=== PATIENT | female | born 1940 | race Caucasian/White ===

== ENCOUNTER 2019-01-13 16:48 | Inpatient (IN) | payer MEDICARE, OTHER ==
[~2019-01-13] VITALS: Ht 162.6 cm; Wt 103.0 kg
[~2019-01-13 16:48] MED LIST: ASPI-611 PO; CETI10CA PO; CHOL10002 PO; HYDR12.55 PO; METO-411 PO; THYR90TA PO; VALS160T2 PO
[2019-01-13] MEDS ORDERED: normal saline 1000ml 1,000 ML IV ONE (17:59)
[2019-01-13] MEDS ORDERED: normal saline 1000ML IV soln IVB ONE (18:00)
[2019-01-13 18:16] LABS: BASOPHILS # (AUTO) 0.1 X10'3 (0-0.2); BASOPHILS % (AUTO) 0.9 % (0-1); EOSINOPHILS # (AUTO) 0.7 X10'3 (0-0.9); EOSINOPHILS % (AUTO) 5.2 % (0-6); HEMATOCRIT 28.2 % (35.0-45.0); HEMOGLOBIN 9.1 g/dl (12.0-16.0); LYMPHOCYTES # (AUTO) 2.4 X10'3 (1.1-4.8); LYMPHOCYTES % (AUTO) 18.1 % (21-51); MEAN CORPUSCULAR HEMOGLOBIN 30.1 PG (27.0-31.0); MEAN CORPUSCULAR HGB CONC 32.3 g/dL (33.0-36.5); MEAN CORPUSCULAR VOLUME 93.1 FL (78-98); MEAN PLATELET VOLUME 8.8 FL (7.4-10.4); MONOCYTES # (AUTO) 1.5 X10'3 (0-0.9); MONOCYTES % (AUTO) 11.8 % (2-12); NEUTROPHILS # (AUTO) 8.4 X10'3 (1.8-7.7); PLATELET COUNT 545 X10'3 (140-440); RED BLOOD COUNT 3.03 X10'6 (4.20-5.60); RED CELL DISTRIBUTION WIDTH 14.5 % (11.5-14.5); WHITE BLOOD COUNT 13.1 X10'3 (4.5-11.0)
[2019-01-13 18:27] LABS: ALANINE AMINOTRANSFERASE 30 U/L (12-78); ALBUMIN/GLOBULIN RATIO 0.6 (1.1-1.5); ALKALINE PHOSPHATASE 100 IU/L (46-116); ANION GAP 15 (8-16); ASPARTATE AMINO TRANSFERASE 21 U/L (10-37); BILIRUBIN,TOTAL 0.6 MG/DL (0.1-1.0); BLOOD UREA NITROGEN 62 MG/DL (7-18); BUN/CREATININE RATIO 8.7 (6.6-38.0); CALCIUM 8.4 MG/DL (8.5-10.1); CHLORIDE 99 MMOL/L (99-107); CREATININE 7.09 MG/DL (0.40-0.90); GLUCOSE 109 MG/DL (70-104); POTASSIUM 4.4 MMOL/L (3.5-5.1); SODIUM 136 MMOL/L (135-145); TOTAL CARBON DIOXIDE 22.4 MMOL/L (24-32); eGFR 6 ML/MIN
[2019-01-13] MEDS ORDERED: acetaminophen 325mg tablet PO PRN (18:30)
[2019-01-13] MEDS ORDERED: bisacodyl 10mg suppository rectal RC PRN (18:30)
[2019-01-13] MEDS ORDERED: levoFLOXACIN-Levaquin 500mg/D5 100 ML IV ONE (18:45)
[2019-01-13 19:06] LABS: CLARITY,URINE SLIGHTLY CLOUDY (Clear); COLOR,URINE YELLOW (Yellow); GLUCOSE, URINE NEGATIVE (Neg); KETONES,URINE NEGATIVE (Neg); LEUKOCYTE ESTERASE ,URINE LARGE (Neg); NITRITES, URINE NEGATIVE (Neg); OCCULT BLOOD,URINE SMALL (Neg); PROTEIN,URINE 30 mg/dl (Neg); UROBILINOGEN,URINE 0.2 E.U/dL (0.2-1.0)
[2019-01-13 19:17] LABS: UA COLLECTION TYPE VOIDED
[2019-01-13 19:18] LABS: BACTERIA,URINE 4+ /HPF (Neg); RBC,URINE 0-2 /HPF (0-2); SQUAMOUS EPITHELIAL CELL,UR MODERATE /LPF (FEW); WBC,URINE TNTC /HPF (0-4)
--- NOTE | 2019-01-13 19:37 | NUR ---
I have received report from Jose ERIC and had the opportunity to ask questions and awaiting arrival of patient to the PCU unit from the ED.
[2019-01-13] MEDS: heparin, porcine 5000 units/ml vial SQ SCH (20:00)
--- NOTE | 2019-01-13 20:05 | NUR ---
Patient arrived to the PCU unit at this time into room 3013A. She is alert and oriented and able to make her needs known. She is oriented to her room and the call light system. She is on room air. Vitals are stable. She denies pain at this time. All safety precautions are in place. Will continue to monitor.
[2019-01-13 20:15] VITALS: BP 155/43
[2019-01-13] MEDS: normal saline 1000ml 1,000 ML IV SCH (20:45)
[2019-01-13 22:00] VITALS: BP 167/67
[2019-01-14] VITALS (8 sets, daily range): BP systolic 134–185; BP diastolic 53–77
[2019-01-14] MEDS: hydrALAZINE 20mg/ml inj. IV PRN ×2 (02:52→11:39)
--- NOTE | 2019-01-14 03:14 | NUR ---
Patient's blood pressure was 180/66 so July notified and ordered PRN IVP Hydralazine 10mg so this was administered and will reassess.
--- NOTE | 2019-01-14 04:12 | NUR ---
BP now down to 158/77 after PRN Hydralazine.
--- NOTE | 2019-01-14 06:27 | NUR ---
Problems reprioritized. Patient report given, questions answered & plan of care reviewed with Janice ERIC.
--- NOTE | 2019-01-14 06:36 | NUR ---
Patient in room PCU 3013. I have received report from Patricia and had the opportunity to ask questions and assume patient care.
[2019-01-14 06:43] LABS: BASOPHILS # (AUTO) 0.1 X10'3 (0-0.2); BASOPHILS % (AUTO) 1.1 % (0-1); EOSINOPHILS # (AUTO) 0.7 X10'3 (0-0.9); EOSINOPHILS % (AUTO) 6.9 % (0-6); HEMATOCRIT 25.7 % (35.0-45.0); HEMOGLOBIN 8.4 g/dl (12.0-16.0); LYMPHOCYTES # (AUTO) 1.9 X10'3 (1.1-4.8); LYMPHOCYTES % (AUTO) 17.7 % (21-51); MEAN CORPUSCULAR HEMOGLOBIN 30.3 PG (27.0-31.0); MEAN CORPUSCULAR HGB CONC 32.6 g/dL (33.0-36.5); MEAN PLATELET VOLUME 8.5 FL (7.4-10.4); MONOCYTES # (AUTO) 1.2 X10'3 (0-0.9); MONOCYTES % (AUTO) 11.5 % (2-12); NEUTROPHILS # (AUTO) 6.7 X10'3 (1.8-7.7); NEUTROPHILS % (AUTO) 62.8 % (42-75); PLATELET COUNT 449 X10'3 (140-440); RED BLOOD COUNT 2.76 X10'6 (4.20-5.60); RED CELL DISTRIBUTION WIDTH 14.4 % (11.5-14.5); WHITE BLOOD COUNT 10.6 X10'3 (4.5-11.0)
[2019-01-14 06:58] LABS: ALANINE AMINOTRANSFERASE 22 U/L (12-78); ALBUMIN 2.6 G/DL (3.4-5.0); ALBUMIN/GLOBULIN RATIO 0.6 (1.1-1.5); ALKALINE PHOSPHATASE 88 IU/L (46-116); ANION GAP 14 (8-16); ASPARTATE AMINO TRANSFERASE 19 U/L (10-37); BILIRUBIN,TOTAL 0.6 MG/DL (0.1-1.0); BLOOD UREA NITROGEN 58 MG/DL (7-18); BUN/CREATININE RATIO 8.6 (6.6-38.0); CALCIUM 8.2 MG/DL (8.5-10.1); CHLORIDE 105 MMOL/L (99-107); CHOL/HDL RATIO 4.5 (0.00-4.99); CHOLESTEROL 112 MG/DL (0-200); CREATININE 6.74 MG/DL (0.40-0.90); GLUCOSE 95 MG/DL (70-104); HDL CHOLESTEROL 25 MG/DL (35-60); LDL CHOLESTEROL 73 MG/DL (50-100); SODIUM 139 MMOL/L (135-145); TOTAL CARBON DIOXIDE 19.6 MMOL/L (24-32); TOTAL PROTEIN 7.1 G/DL (6.4-8.2); TRIGLYCERIDES 95 MG/DL (20-135); eGFR 6 ML/MIN
[2019-01-14] MEDS: aspirin 81mg tablet.DR PO SCH (07:45)
[2019-01-14] MEDS: levoFLOXACIN-Levaquin 250mg/D5 50 ML IV SCH (07:45)
[2019-01-14] MEDS: thyroid, pork 30mg tablet PO SCH (07:45)
[2019-01-14] MEDS: vitamin D (cholecalciferol) 1,000 unit tablet PO SCH (07:46)
[2019-01-14] MEDS: metoprolol succinate 25mg (24-HOUR) SR. Tablet PO SCH (07:46)
[2019-01-14] MEDS: heparin, porcine 5000 units/ml vial SQ SCH ×3 (07:46→21:43)
[2019-01-14] MEDS: normal saline 1000ml 1,000 ML IV SCH (07:46)
[2019-01-14 07:50] LABS: TOTAL CELLS COUNTED 100
[2019-01-14 07:51] LABS: PLATELET ESTIMATE INCREASED
[2019-01-14] MEDS: ondansetron/PF 4mg/2ml inj IV PRN ×2 (07:58→15:18)
--- NOTE | 2019-01-14 09:11 | NUR ---
WOUND INFECTION EDUCATION PROVIDED BY WOUND CARE 1. Patient instructed to call their primary doctor, or go the ED immediately if any of the following symptoms occur: * Increased pain in wound * Increase in drainage from the wound * Redness in the skin surrounding the wound * Warmth in the skin surrounding the wound * Bleeding from the wound * Temperature of 101 or greater 2. If any of these occur while in the hospital tell a nurse immediately. Addendum: 01/14/19 at 0911 by Lonra Shah RN Amended: Links added.
--- NOTE | 2019-01-14 11:07 | NUR ---
Renal diet consult: Pt admit acute on chronic renal failure and UTI. Pt has hx CKD III w/ labs WNL Na 136 on admit w/o Mg/Phos taken this admit. Given baseline unknown, electrolytes WNL this admit, and not end-stage renal disease not appropriate for diet ed at this time. Addendum: 01/14/19 at [address] Amended: Links added.
[2019-01-14] MEDS: acetaminophen 325mg tablet PO PRN (13:41)
[2019-01-14] MEDS: cloNIDine 0.1 mg tablet PO SCH ×2 (15:59→21:43)
--- NOTE | 2019-01-14 18:18 | NUR ---
Problems reprioritized. Patient report given, questions answered & plan of care reviewed with Alisa ERIC.
[2019-01-14] MEDS: lactobacillus rhamnosus 10,000 MMU CELLS/CAPSULE PO SCH (21:43)
--- NOTE | 2019-01-14 23:54 | NUR ---
Patient in room PCU 3013. I have received report from Janice ERIC and had the opportunity to ask questions and assume patient care. Patient is resting with her family at bedside. Will continue to monitor. Addendum: 01/14/19 at 2356 by Alisa Young RN Della ERIC
[2019-01-15 02:00] VITALS: BP 157/51
[2019-01-15 05:12] LABS: BASOPHILS # (AUTO) 0.1 X10'3 (0-0.2); EOSINOPHILS # (AUTO) 0.6 X10'3 (0-0.9); EOSINOPHILS % (AUTO) 6.8 % (0-6); HEMATOCRIT 22.6 % (35.0-45.0); HEMOGLOBIN 7.6 g/dl (12.0-16.0); LYMPHOCYTES # (AUTO) 1.8 X10'3 (1.1-4.8); LYMPHOCYTES % (AUTO) 20.4 % (21-51); MEAN CORPUSCULAR HEMOGLOBIN 30.9 PG (27.0-31.0); MEAN CORPUSCULAR HGB CONC 33.4 g/dL (33.0-36.5); MEAN CORPUSCULAR VOLUME 92.6 FL (78-98); MEAN PLATELET VOLUME 8.6 FL (7.4-10.4); MONOCYTES % (AUTO) 11.4 % (2-12); NEUTROPHILS # (AUTO) 5.3 X10'3 (1.8-7.7); NEUTROPHILS % (AUTO) 60.4 % (42-75); PLATELET COUNT 370 X10'3 (140-440); RED BLOOD COUNT 2.44 X10'6 (4.20-5.60); RED CELL DISTRIBUTION WIDTH 14.6 % (11.5-14.5); WHITE BLOOD COUNT 8.7 X10'3 (4.5-11.0)
[2019-01-15 05:27] LABS: ALANINE AMINOTRANSFERASE 21 U/L (12-78); ALBUMIN 2.4 G/DL (3.4-5.0); ALBUMIN/GLOBULIN RATIO 0.6 (1.1-1.5); ALKALINE PHOSPHATASE 75 IU/L (46-116); ANION GAP 13 (8-16); ASPARTATE AMINO TRANSFERASE 14 U/L (10-37); BILIRUBIN,TOTAL 0.5 MG/DL (0.1-1.0); BLOOD UREA NITROGEN 62 MG/DL (7-18); BUN/CREATININE RATIO 8.4 (6.6-38.0); CALCIUM 8.1 MG/DL (8.5-10.1); CHLORIDE 105 MMOL/L (99-107); CREATININE 7.37 MG/DL (0.40-0.90); GLUCOSE 96 MG/DL (70-104); POTASSIUM 4.3 MMOL/L (3.5-5.1); SODIUM 137 MMOL/L (135-145); TOTAL CARBON DIOXIDE 19.1 MMOL/L (24-32); TOTAL PROTEIN 6.6 G/DL (6.4-8.2); eGFR 5 ML/MIN
--- NOTE | 2019-01-15 06:16 | NUR ---
Problems reprioritized. Patient report given, questions answered & plan of care reviewed with Della ERIC.
--- NOTE | 2019-01-15 06:45 | NUR ---
Patient in room PCU 3013. I have received report from Alisa and had the opportunity to ask questions and assume patient care.
[2019-01-15 06:47] LABS: ANISOCYTOSIS 1+; PLATELET ESTIMATE NORMAL
[2019-01-15 06:48] LABS: POLYCHROMASIA 1+; ROULEAUX 1+
[2019-01-15 07:00] VITALS: BP 134/51
[2019-01-15] MEDS: heparin, porcine 5000 units/ml vial SQ SCH ×2 (08:00→20:00)
[2019-01-15] MEDS: aspirin 81mg tablet.DR PO SCH (08:11)
[2019-01-15] MEDS: lactobacillus rhamnosus 10,000 MMU CELLS/CAPSULE PO SCH ×2 (08:11→20:55)
[2019-01-15] MEDS: cloNIDine 0.1 mg tablet PO SCH ×3 (08:11→20:55)
[2019-01-15] MEDS: thyroid, pork 30mg tablet PO SCH (08:11)
[2019-01-15] MEDS: vitamin D (cholecalciferol) 1,000 unit tablet PO SCH (08:11)
[2019-01-15] MEDS: levoFLOXACIN-Levaquin 250mg/D5 50 ML IV SCH (08:11)
[2019-01-15] MEDS: metoprolol succinate 25mg (24-HOUR) SR. Tablet PO SCH (08:12)
[2019-01-15] MEDS ORDERED: heparin 1,000unit/ml 10ml vial 10 ML IV ONE (09:43)
[2019-01-15] MEDS ORDERED: heparin 1,000 units/ml 10ml inj IV ONE (09:45)
[2019-01-15] MEDS ORDERED: albumin (human) 25% 100ml IV 100 ML IV PRN (09:45)
[2019-01-15] MEDS ORDERED: epoetin 20,000 units/ml inj IV ONE (09:45)
[2019-01-15] MEDS ORDERED: heparin 1,000 units/ml 10ml inj HE ONE ×2 (09:50)
[2019-01-15 11:00] VITALS: BP 127/87
[2019-01-15] MEDS ORDERED: fentaNYL/PF 50MCG/1 ML 2ML syringe IV PRN (11:05)
[2019-01-15] MEDS ORDERED: midazolam 2 mg/2 ml injection IV PRN (11:05)
[2019-01-15] MEDS ORDERED: LIDOcaine 1%/PF 5ML 10 MG/ML VIAL SQ ONE (11:05)
[2019-01-15] MEDS ORDERED: LIDOcaine 1%/PF 5ML 10 MG/ML VIAL ONE (11:19)
[2019-01-15] MEDS ORDERED: heparin 1,000unit/ml 10ml vial 10 ML ONE (11:19)
[2019-01-15] MEDS ORDERED: midazolam 2 mg/2 ml injection ONE (11:20)
[2019-01-15] MEDS ORDERED: fentaNYL/PF 50MCG/1 ML 2ML syringe ONE (11:20)
--- NOTE | 2019-01-15 11:30 | NUR ---
IR to PCU floor to pickup patient for Tunneled dialysis catheter placement and informed per PCU Nurse that the procedure was canceled.
[2019-01-15 15:00] VITALS: BP 137/53
[2019-01-15 19:00] VITALS: BP 151/58
[2019-01-15 23:00] VITALS: BP 140/45
[2019-01-15] MEDS: normal saline 1000ml 1,000 ML IV SCH (23:10)
[2019-01-16] VITALS (7 sets, daily range): BP systolic 103–168; BP diastolic 52–68
[2019-01-16 05:40] LABS: BASOPHILS # (AUTO) 0.1 X10'3 (0-0.2); EOSINOPHILS # (AUTO) 0.8 X10'3 (0-0.9); EOSINOPHILS % (AUTO) 9.3 % (0-6); HEMATOCRIT 23.6 % (35.0-45.0); HEMOGLOBIN 7.8 g/dl (12.0-16.0); LYMPHOCYTES # (AUTO) 1.7 X10'3 (1.1-4.8); LYMPHOCYTES % (AUTO) 20.2 % (21-51); MEAN CORPUSCULAR HEMOGLOBIN 30.8 PG (27.0-31.0); MEAN CORPUSCULAR VOLUME 93.2 FL (78-98); MEAN PLATELET VOLUME 8.6 FL (7.4-10.4); MONOCYTES # (AUTO) 0.8 X10'3 (0-0.9); MONOCYTES % (AUTO) 9.2 % (2-12); NEUTROPHILS # (AUTO) 5.1 X10'3 (1.8-7.7); NEUTROPHILS % (AUTO) 60.3 % (42-75); PLATELET COUNT 316 X10'3 (140-440); RED BLOOD COUNT 2.53 X10'6 (4.20-5.60); RED CELL DISTRIBUTION WIDTH 14.9 % (11.5-14.5); WHITE BLOOD COUNT 8.5 X10'3 (4.5-11.0)
[2019-01-16 05:54] LABS: ALANINE AMINOTRANSFERASE 22 U/L (12-78); ALBUMIN 2.5 G/DL (3.4-5.0); ALBUMIN/GLOBULIN RATIO 0.6 (1.1-1.5); ALKALINE PHOSPHATASE 80 IU/L (46-116); ANION GAP 13 (8-16); ASPARTATE AMINO TRANSFERASE 19 U/L (10-37); BILIRUBIN,TOTAL 0.5 MG/DL (0.1-1.0); BLOOD UREA NITROGEN 61 MG/DL (7-18); BUN/CREATININE RATIO 8.3 (6.6-38.0); CALCIUM 8.1 MG/DL (8.5-10.1); CHLORIDE 105 MMOL/L (99-107); CREATININE 7.33 MG/DL (0.40-0.90); GLUCOSE 100 MG/DL (70-104); POTASSIUM 4.3 MMOL/L (3.5-5.1); SODIUM 138 MMOL/L (135-145); TOTAL CARBON DIOXIDE 19.7 MMOL/L (24-32); TOTAL PROTEIN 6.6 G/DL (6.4-8.2); eGFR 5 ML/MIN
--- NOTE | 2019-01-16 06:30 | NUR ---
Problems reprioritized. Patient report given, questions answered & plan of care reviewed with HERNESTO Hull.
--- NOTE | 2019-01-16 06:30 | NUR ---
Patient in room PCU 3008. I have received report from Zuly and had the opportunity to ask questions and assume patient care.
[2019-01-16] MEDS: normal saline 1000ml 1,000 ML IV SCH (06:37)
--- NOTE | 2019-01-16 07:20 | NUR ---
Dr. Hicks notified of positive MDRO in urine.
[2019-01-16] MEDS: heparin, porcine 5000 units/ml vial SQ SCH ×2 (08:00→20:00)
[2019-01-16] MEDS: cloNIDine 0.1 mg tablet PO SCH ×3 (09:11→19:59)
[2019-01-16] MEDS: lactobacillus rhamnosus 10,000 MMU CELLS/CAPSULE PO SCH ×2 (09:11→19:58)
[2019-01-16] MEDS: metoprolol succinate 25mg (24-HOUR) SR. Tablet PO SCH (09:11)
[2019-01-16] MEDS: vitamin D (cholecalciferol) 1,000 unit tablet PO SCH (09:11)
[2019-01-16] MEDS: aspirin 81mg tablet.DR PO SCH (09:11)
[2019-01-16] MEDS: thyroid, pork 30mg tablet PO SCH (09:11)
[2019-01-16] MEDS: levoFLOXACIN 250mg tablet PO SCH (11:00)
--- NOTE | 2019-01-16 13:52 | NUR ---
Paged vascular [phone] Willa. patient has renal artery stent study to be done. please give me a call Della ERIC [phone]
[2019-01-16] MEDS: simethicone 125mg capsule PO SCH ×2 (13:56→19:59)
--- NOTE | 2019-01-16 18:18 | NUR ---
Problems reprioritized. Patient report given, questions answered & plan of care reviewed with Gloria.
--- NOTE | 2019-01-16 18:20 | NUR ---
Patient in room PCU 3008. I have received report from HERNESTO Camacho and had the opportunity to ask questions and assume patient care. Will continue to monitor
[2019-01-16] MEDS: hydrALAZINE 20mg/ml inj. IV PRN (23:09)
[2019-01-17] VITALS (9 sets, daily range): BP systolic 133–189; BP diastolic 47–66
[2019-01-17 05:14] LABS: BASOPHILS # (AUTO) 0.1 X10'3 (0-0.2); BASOPHILS % (AUTO) 0.8 % (0-1); EOSINOPHILS # (AUTO) 0.8 X10'3 (0-0.9); EOSINOPHILS % (AUTO) 9.6 % (0-6); HEMATOCRIT 23.9 % (35.0-45.0); HEMOGLOBIN 7.9 g/dl (12.0-16.0); LYMPHOCYTES # (AUTO) 1.7 X10'3 (1.1-4.8); LYMPHOCYTES % (AUTO) 19.2 % (21-51); MEAN CORPUSCULAR HEMOGLOBIN 30.5 PG (27.0-31.0); MEAN CORPUSCULAR VOLUME 92.6 FL (78-98); MEAN PLATELET VOLUME 8.9 FL (7.4-10.4); MONOCYTES % (AUTO) 10.9 % (2-12); NEUTROPHILS # (AUTO) 5.2 X10'3 (1.8-7.7); NEUTROPHILS % (AUTO) 59.5 % (42-75); PLATELET COUNT 265 X10'3 (140-440); RED BLOOD COUNT 2.58 X10'6 (4.20-5.60); RED CELL DISTRIBUTION WIDTH 14.6 % (11.5-14.5); WHITE BLOOD COUNT 8.8 X10'3 (4.5-11.0)
[2019-01-17 05:43] LABS: ALANINE AMINOTRANSFERASE 24 U/L (12-78); ALBUMIN 2.5 G/DL (3.4-5.0); ALBUMIN/GLOBULIN RATIO 0.6 (1.1-1.5); ALKALINE PHOSPHATASE 80 IU/L (46-116); ANION GAP 13 (8-16); ASPARTATE AMINO TRANSFERASE 17 U/L (10-37); BILIRUBIN,TOTAL 0.5 MG/DL (0.1-1.0); BLOOD UREA NITROGEN 62 MG/DL (7-18); BUN/CREATININE RATIO 8.7 (6.6-38.0); CALCIUM 7.8 MG/DL (8.5-10.1); CHLORIDE 104 MMOL/L (99-107); CREATININE 7.09 MG/DL (0.40-0.90); GLUCOSE 104 MG/DL (70-104); POTASSIUM 4.2 MMOL/L (3.5-5.1); SODIUM 136 MMOL/L (135-145); TOTAL CARBON DIOXIDE 18.6 MMOL/L (24-32); TOTAL PROTEIN 6.6 G/DL (6.4-8.2); eGFR 6 ML/MIN
--- NOTE | 2019-01-17 06:04 | NUR ---
[place] Medication Administration: For this medication-pass time frame, all medication were reviewed, dispensed, administered and documented per hospital policy by Alex ERIC. [place] documentation: I have reviewed all interventions, assessments performed and documented by Alex ERIC.
--- NOTE | 2019-01-17 06:13 | NUR ---
Problems reprioritized. Patient report given, questions answered & plan of care reviewed with Tierney RN & Wilma RN.
--- NOTE | 2019-01-17 06:15 | NUR ---
Problems reprioritized. Patient report given, questions answered & plan of care reviewed with HERNESTO Monet.
--- NOTE | 2019-01-17 06:21 | NUR ---
Patient in room U 3008. I have received report from Akhil Gregory and had the opportunity to ask questions and assume patient care. Addendum: 01/17/19 at 0622 by Wilma Tariq RN HERNESTO Gregory Patient is currently sleeping in bed, bed locked and low, call light in reach. No acute distress, will continue to monitor.
[2019-01-17] MEDS: simethicone 125mg capsule PO SCH ×3 (07:08→20:14)
[2019-01-17] MEDS: vitamin D (cholecalciferol) 1,000 unit tablet PO SCH (07:08)
[2019-01-17] MEDS: lactobacillus rhamnosus 10,000 MMU CELLS/CAPSULE PO SCH ×2 (07:09→20:14)
[2019-01-17] MEDS: cloNIDine 0.1 mg tablet PO SCH ×3 (07:09→20:16)
[2019-01-17] MEDS: aspirin 81mg tablet.DR PO SCH (07:09)
[2019-01-17] MEDS: thyroid, pork 30mg tablet PO SCH (07:09)
[2019-01-17] MEDS: metoprolol succinate 25mg (24-HOUR) SR. Tablet PO SCH (08:00)
--- NOTE | 2019-01-17 08:36 | NUR ---
BP was elevated at 600 vitals, 176/55, gave morning dose of clonidine and rechecked after 1 hour, BP 133/53, no hydralazine given. Metoprolol held per protocol as Apical pulse was 51. Will notify
[2019-01-17] MEDS: levoFLOXACIN 250mg tablet PO SCH (11:53)
[2019-01-17] MEDS: heparin, porcine 5000 units/ml vial SQ SCH ×2 (11:53→20:16)
[2019-01-17] MEDS: hydrALAZINE 20mg/ml inj. IV PRN (16:17)
--- NOTE | 2019-01-17 18:32 | NUR ---
Patient in room PCU 3008. I have received report from Tierney and had the opportunity to ask questions and assume patient care.
--- NOTE | 2019-01-17 18:34 | NUR ---
Problems reprioritized. Patient report given, questions answered & plan of care reviewed with Anthony ERIC. Patient stable at transfer of care.
[2019-01-18 02:00] VITALS: BP 162/65
[2019-01-18 05:23] LABS: BASOPHILS # (AUTO) 0.1 X10'3 (0-0.2); BASOPHILS % (AUTO) 0.9 % (0-1); EOSINOPHILS # (AUTO) 0.6 X10'3 (0-0.9); EOSINOPHILS % (AUTO) 7.7 % (0-6); HEMATOCRIT 23.7 % (35.0-45.0); HEMOGLOBIN 7.9 g/dl (12.0-16.0); LYMPHOCYTES # (AUTO) 1.6 X10'3 (1.1-4.8); LYMPHOCYTES % (AUTO) 21.8 % (21-51); MEAN CORPUSCULAR HEMOGLOBIN 30.7 PG (27.0-31.0); MEAN CORPUSCULAR HGB CONC 33.2 g/dL (33.0-36.5); MEAN CORPUSCULAR VOLUME 92.6 FL (78-98); MEAN PLATELET VOLUME 9.1 FL (7.4-10.4); MONOCYTES # (AUTO) 0.9 X10'3 (0-0.9); MONOCYTES % (AUTO) 11.9 % (2-12); NEUTROPHILS # (AUTO) 4.2 X10'3 (1.8-7.7); NEUTROPHILS % (AUTO) 57.7 % (42-75); PLATELET COUNT 260 X10'3 (140-440); RED BLOOD COUNT 2.56 X10'6 (4.20-5.60); RED CELL DISTRIBUTION WIDTH 14.9 % (11.5-14.5); WHITE BLOOD COUNT 7.3 X10'3 (4.5-11.0)
[2019-01-18 05:33] LABS: ALANINE AMINOTRANSFERASE 19 U/L (12-78); ALBUMIN 2.5 G/DL (3.4-5.0); ALBUMIN/GLOBULIN RATIO 0.6 (1.1-1.5); ALKALINE PHOSPHATASE 82 IU/L (46-116); ANION GAP 14 (8-16); ASPARTATE AMINO TRANSFERASE 15 U/L (10-37); BILIRUBIN,TOTAL 0.6 MG/DL (0.1-1.0); BLOOD UREA NITROGEN 61 MG/DL (7-18); BUN/CREATININE RATIO 8.5 (6.6-38.0); CALCIUM 8.4 MG/DL (8.5-10.1); CHLORIDE 105 MMOL/L (99-107); GLUCOSE 104 MG/DL (70-104); POTASSIUM 4.5 MMOL/L (3.5-5.1); SODIUM 137 MMOL/L (135-145); TOTAL CARBON DIOXIDE 18.4 MMOL/L (24-32); TOTAL PROTEIN 6.6 G/DL (6.4-8.2); eGFR 6 ML/MIN
[2019-01-18 06:00] VITALS: BP 168/65
--- NOTE | 2019-01-18 06:16 | NUR ---
Problems reprioritized. Patient report given, questions answered & plan of care reviewed with
[2019-01-18] MEDS: lactobacillus rhamnosus 10,000 MMU CELLS/CAPSULE PO SCH ×2 (08:24→21:41)
[2019-01-18] MEDS: vitamin D (cholecalciferol) 1,000 unit tablet PO SCH (08:24)
[2019-01-18] MEDS: simethicone 125mg capsule PO SCH ×3 (08:24→21:41)
[2019-01-18] MEDS: aspirin 81mg tablet.DR PO SCH (08:24)
[2019-01-18] MEDS: thyroid, pork 30mg tablet PO SCH (08:24)
[2019-01-18] MEDS: metoprolol succinate 25mg (24-HOUR) SR. Tablet PO SCH (08:25)
[2019-01-18] MEDS: cloNIDine 0.1 mg tablet PO SCH ×3 (08:25→22:04)
[2019-01-18] MEDS: heparin, porcine 5000 units/ml vial SQ SCH ×2 (08:42→19:37)
--- NOTE | 2019-01-18 09:48 | NUR ---
Renal diet ed consult: already addressed; see prior note. Addendum: 01/18/19 at [address] Amended: Links added.
--- NOTE | 2019-01-18 10:41 | NUR ---
Patient in room PCU 3008. I have received report from HERNESTO Cruz and had the opportunity to ask questions and assume patient care.
[2019-01-18 11:00] VITALS: BP 112/81
[2019-01-18] MEDS: levoFLOXACIN 250mg tablet PO SCH (11:14)
--- NOTE | 2019-01-18 13:52 | NUR ---
Patient to OR per eliseo.
--- NOTE | 2019-01-18 16:43 | NUR ---
Initial: Pt admit w/ elevated BUN/Cr hx CKD III. PO 25-50% low since admit. LBM 7 only small/hard since admit. Pt/family seen by RD and reports bottom teeth surgery makes it hard to chew meats/lettuces; reports not liking smell of most foods especially meats. Pt was agreeable to oatmeal, whole milk, muffin w/ butter packet, peaches at breakfast; pasta at lunch; chicken salad sandwich w/ additional shukla packet OK by RD given low PO; cucumber salad BIDLD. Pt agreeable to vanilla/chocolate Nepro BIDLD; pending MD verification. RD explained to pt why ESRD diet ed not truly appropriate at this time and encourage py hydration as well as appetite. Pt reports constipation and that portion sizes are larger for her than normal. GRACE d/w RN regarding routine bowel care per MD approval LBM 01/16. RD contact information provided in case further diet concerns. Will continue to monitor. Rec: 1. advance to regular diet per MD approval 2. honor pt food preferences; see above 3. routine bowel care 4. weekly wt Addendum: 01/18/19 at [address] Amended: Links added. Addendum: 01/18/19 at [address] Initial: Pt admit w/ elevated BUN/Cr hx CKD III. PO 25-50% low since admit. LBM 01/16 only small/hard since admit. Pt/family seen by GRACE and reports bottom teeth surgery makes it hard to chew meats/lettuces; reports not liking smell of most foods especially meats. Pt was agreeable to oatmeal, whole milk, muffin w/ butter packet, peaches at breakfast; pasta at lunch; chicken salad sandwich w/ additional shukla packet OK by RD given low PO; cucumber salad BIDLD. Pt agreeable to vanilla/chocolate Nepro BIDLD; pending MD verification. RD explained to pt why ESRD diet ed not truly appropriate at this time and encourage py hydration as well as appetite. Pt reports constipation and that portion sizes are larger for her than normal. GRACE d/w RN regarding routine bowel care per MD approval LBM 01/16. RD contact information provided in case further diet concerns. Will continue to monitor. Rec: 1. advance to regular diet per MD approval 2. honor pt food preferences; see above 3. routine bowel care 4. vanilla/chocolate Nepro BIDLD 5. weekly wt
[2019-01-18 18:00] VITALS: BP 163/66
--- NOTE | 2019-01-18 18:18 | NUR ---
Problems reprioritized. Patient report given, questions answered & plan of care reviewed with
--- NOTE | 2019-01-18 18:40 | NUR ---
Patient in room PCU 3008. I have received report from Jaqui and had the opportunity to ask questions and assume patient care.
[2019-01-18 22:00] VITALS: BP 158/63
--- NOTE | 2019-01-18 22:21 | NUR ---
Discussed with patient about her IV which was placed on the 01/14. Educated the patient on the risks of keeping it in. She would like to keep it in. It flushes easily. clean dry and intact.
[2019-01-19 02:00] VITALS: BP 162/65
--- NOTE | 2019-01-19 06:00 | NUR ---
Patient in room PCU 3008. I have received report from HERNESTO Salgado and had the opportunity to ask questions and assume patient care.
--- NOTE | 2019-01-19 06:22 | NUR ---
Problems reprioritized. Patient report given, questions answered & plan of care reviewed with
[2019-01-19 07:00] VITALS: BP 166/69
[2019-01-19] MEDS: heparin, porcine 5000 units/ml vial SQ SCH ×2 (08:00→20:00)
[2019-01-19] MEDS: cloNIDine 0.1 mg tablet PO SCH ×4 (09:07→21:00)
[2019-01-19] MEDS: lactobacillus rhamnosus 10,000 MMU CELLS/CAPSULE PO SCH ×2 (09:07→20:37)
[2019-01-19] MEDS: thyroid, pork 30mg tablet PO SCH (09:08)
[2019-01-19] MEDS: vitamin D (cholecalciferol) 1,000 unit tablet PO SCH (09:10)
[2019-01-19] MEDS: metoprolol succinate 25mg (24-HOUR) SR. Tablet PO SCH (09:10)
[2019-01-19] MEDS: aspirin 81mg tablet.DR PO SCH (09:10)
[2019-01-19] MEDS: simethicone 125mg capsule PO SCH ×3 (09:16→20:37)
[2019-01-19] MEDS ORDERED: epoetin 20,000 units/ml inj SQ ONE (10:10)
[2019-01-19 11:00] VITALS: BP 129/66
[2019-01-19] MEDS: levoFLOXACIN 250mg tablet PO SCH (12:13)
[2019-01-19 15:00] VITALS: BP 145/64
--- NOTE | 2019-01-19 15:08 | NUR ---
MESSAGE to Dr. Capps. Mr. Patel in room 3018A. [facility]. He states he had a large black BM. He is on Heparin and Aggranox. I did not see it as he flushed it. FYI. Nails EXT [phone]
--- NOTE | 2019-01-19 17:03 | NUR ---
Unable to secure any betadine to do dressing change. Called wound care, central supply and pharmacy. Addendum: 01/19/19 at 1703 by Jaqui Pritchard RN Amended: Links added.
--- NOTE | 2019-01-19 18:31 | NUR ---
Problems reprioritized. Patient report given, questions answered & plan of care reviewed with isael flores.
--- NOTE | 2019-01-19 18:38 | NUR ---
Patient in room PCU 3008. I have received report from Jaqui ERIC and had the opportunity to ask questions and assume patient care.
[2019-01-19 19:00] VITALS: BP 142/54
--- NOTE | 2019-01-19 21:00 | NUR ---
unable to find any betadine, iodine swap was replaced to clean pt's wound instead, charge nurse is okay with it
--- NOTE | 2019-01-19 22:00 | NUR ---
pt bp was 176/86 called FAUSTINO Mishra, he gave order to give clonidine 0.2 mg even with a low HR of 55, pt bp went down to 151 systolic after receiving medications
[2019-01-19 23:00] VITALS: BP 169/66
[2019-01-20] VITALS (7 sets, daily range): BP systolic 125–188; BP diastolic 49–71
--- NOTE | 2019-01-20 05:56 | NUR ---
called PARTS TECHNICIAN about BP on the 170s, got an order of hydralazine PO for sys >175
--- NOTE | 2019-01-20 06:12 | NUR ---
Problems reprioritized. Patient report given, questions answered & plan of care reviewed with
--- NOTE | 2019-01-20 06:39 | NUR ---
Patient in room PCU 3008. I have received report from HERNESTO Dale and had the opportunity to ask questions and assume patient care.
[2019-01-20] MEDS: heparin, porcine 5000 units/ml vial SQ SCH ×2 (08:23→21:29)
[2019-01-20] MEDS: metoprolol succinate 25mg (24-HOUR) SR. Tablet PO SCH (08:23)
[2019-01-20] MEDS: simethicone 125mg capsule PO SCH ×3 (08:23→21:29)
[2019-01-20] MEDS: lactobacillus rhamnosus 10,000 MMU CELLS/CAPSULE PO SCH ×2 (08:24→21:28)
[2019-01-20] MEDS: cloNIDine 0.1 mg tablet PO SCH ×4 (08:24→21:28)
[2019-01-20] MEDS: vitamin D (cholecalciferol) 1,000 unit tablet PO SCH (08:24)
[2019-01-20] MEDS: aspirin 81mg tablet.DR PO SCH (08:24)
[2019-01-20] MEDS: thyroid, pork 30mg tablet PO SCH (08:24)
[2019-01-20] MEDS: levoFLOXACIN 250mg tablet PO SCH (12:33)
--- NOTE | 2019-01-20 18:19 | NUR ---
Problems reprioritized. Patient report given, questions answered & plan of care reviewed with
--- NOTE | 2019-01-20 18:19 | NUR ---
Problems reprioritized. Patient report given, questions answered & plan of care reviewed with HERNESTO Salgado.
--- NOTE | 2019-01-20 20:06 | NUR ---
sent to [facility] 3008, Anabell Crouch: Pt has no labs ordered for AM would you like to order CMP & CBC? Naomi [phone]
[2019-01-21 00:40] VITALS: BP 166/60
[2019-01-21] MEDS: acetaminophen 325mg tablet PO PRN ×3 (01:38→19:19)
[2019-01-21 03:00] VITALS: BP 175/57
[2019-01-21 05:46] LABS: BASOPHILS # (AUTO) 0.1 X10'3 (0-0.2); BASOPHILS % (AUTO) 0.8 % (0-1); EOSINOPHILS # (AUTO) 0.8 X10'3 (0-0.9); EOSINOPHILS % (AUTO) 10.7 % (0-6); HEMATOCRIT 23.9 % (35.0-45.0); HEMOGLOBIN 7.9 g/dl (12.0-16.0); LYMPHOCYTES # (AUTO) 1.7 X10'3 (1.1-4.8); MEAN CORPUSCULAR HEMOGLOBIN 30.2 PG (27.0-31.0); MEAN CORPUSCULAR VOLUME 91.5 FL (78-98); MEAN PLATELET VOLUME 9.5 FL (7.4-10.4); MONOCYTES # (AUTO) 0.8 X10'3 (0-0.9); MONOCYTES % (AUTO) 11.5 % (2-12); NEUTROPHILS # (AUTO) 3.9 X10'3 (1.8-7.7); PLATELET COUNT 188 X10'3 (140-440); RED BLOOD COUNT 2.61 X10'6 (4.20-5.60); RED CELL DISTRIBUTION WIDTH 14.6 % (11.5-14.5); WHITE BLOOD COUNT 7.3 X10'3 (4.5-11.0)
[2019-01-21 06:00] VITALS: BP 178/64
[2019-01-21 06:04] LABS: ALANINE AMINOTRANSFERASE 21 U/L (12-78); ALBUMIN 2.5 G/DL (3.4-5.0); ALBUMIN/GLOBULIN RATIO 0.6 (1.1-1.5); ALKALINE PHOSPHATASE 72 IU/L (46-116); ANION GAP 15 (8-16); ASPARTATE AMINO TRANSFERASE 13 U/L (10-37); BILIRUBIN,TOTAL 0.5 MG/DL (0.1-1.0); BLOOD UREA NITROGEN 69 MG/DL (7-18); BUN/CREATININE RATIO 9.4 (6.6-38.0); CALCIUM 8.4 MG/DL (8.5-10.1); CHLORIDE 103 MMOL/L (99-107); CREATININE 7.35 MG/DL (0.40-0.90); GLUCOSE 102 MG/DL (70-104); PHOSPHORUS 5.5 MG/DL (2.3-4.5); POTASSIUM 4.5 MMOL/L (3.5-5.1); SODIUM 136 MMOL/L (135-145); TOTAL CARBON DIOXIDE 18.1 MMOL/L (24-32); TOTAL PROTEIN 6.6 G/DL (6.4-8.2); eGFR 5 ML/MIN
--- NOTE | 2019-01-21 06:28 | NUR ---
Problems reprioritized. Patient report given, questions answered & plan of care reviewed with HERNESTO Hull.
--- NOTE | 2019-01-21 06:29 | NUR ---
Patient in room PCU 3008. I have received report from Naomi and had the opportunity to ask questions and assume patient care.
[2019-01-21] MEDS: metoprolol succinate 25mg (24-HOUR) SR. Tablet PO SCH (07:46)
[2019-01-21] MEDS: lactobacillus rhamnosus 10,000 MMU CELLS/CAPSULE PO SCH ×2 (07:46→20:46)
[2019-01-21] MEDS: vitamin D (cholecalciferol) 1,000 unit tablet PO SCH (07:46)
[2019-01-21] MEDS: aspirin 81mg tablet.DR PO SCH (07:46)
[2019-01-21] MEDS: simethicone 125mg capsule PO SCH ×3 (07:46→20:47)
[2019-01-21] MEDS: thyroid, pork 30mg tablet PO SCH (07:46)
[2019-01-21] MEDS: heparin, porcine 5000 units/ml vial SQ SCH ×2 (07:55→20:00)
[2019-01-21] MEDS: hydrALAZINE 25 MG tablet PO PRN ×2 (07:55→20:58)
[2019-01-21] MEDS: cloNIDine 0.1 mg tablet PO SCH ×3 (08:00→20:47)
[2019-01-21 11:00] VITALS: BP 165/56
[2019-01-21] MEDS: levoFLOXACIN 250mg tablet PO SCH (11:17)
--- NOTE | 2019-01-21 11:40 | NUR ---
Dr. martini at bedside. Notified provider that patients BP has been high but heart rate has been on the lower side. Notified him that morning clonidine was held. Afternoon clonidine was given HR was 63.
--- NOTE | 2019-01-21 11:52 | NUR ---
Reassessment: Pt continues with low PO intake 25-50% receiving Nepro BID with lunch and dinner. Spoke with special diet cook today to confirm rounding on patient to help with menu selection to optimize PO intake. LBM 01/20. Pt likely to d/c to rehab per MD notes. Will continue to follow. Initial: Pt admit w/ elevated BUN/Cr hx CKD III. PO 25-50% low since admit. LBM 01/16 only small/hard since admit. Pt/family seen by RD and reports bottom teeth surgery makes it hard to chew meats/lettuces; reports not liking smell of most foods especially meats. Pt was agreeable to oatmeal, whole milk, muffin w/ butter packet, peaches at breakfast; pasta at lunch; chicken salad sandwich w/ additional shukla packet OK by RD given low PO; cucumber salad BIDLD. Pt agreeable to vanilla/chocolate Nepro BIDLD; pending MD verification. RD explained to pt why ESRD diet ed not truly appropriate at this time and encourage py hydration as well as appetite. Pt reports constipation and that portion sizes are larger for her than normal. GRACE d/w RN regarding routine bowel care per MD approval LBM 01/16. RD contact information provided in case further diet concerns. Will continue to monitor. Rec: 1. advance to regular diet per MD approval 2. honor pt food preferences; see above 3. routine bowel care 4. vanilla/chocolate Nepro BIDLD 5. weekly wt Addendum: 01/21/19 at [address] Amended: Links added.
[2019-01-21] MEDS ORDERED: labetalol 100mg tablet PO PRN (13:10)
--- NOTE | 2019-01-21 17:02 | NUR ---
Report given to Suzanna ERIC
--- NOTE | 2019-01-21 17:03 | NUR ---
Patient in room PCU 3008. I have received report from Radha ERIC and had the opportunity to ask questions and assume patient care. Pt is in bed with family members, all needs met at this time. will continue to monitor.
--- NOTE | 2019-01-21 17:03 | NUR ---
Patient in room PCU 3008. I have received report from HERNESTO Hull and had the opportunity to ask questions and assume patient care. Patient awake and in bed. No complaints at this time. and daughter present at bedside.
--- NOTE | 2019-01-21 18:37 | NUR ---
Problems reprioritized. Patient report given, questions answered & plan of care reviewed with Suyapa ERIC. Patient stable at transfer of care.
[2019-01-21 19:00] VITALS: BP 177/78
[2019-01-21 23:00] VITALS: BP 147/56
[2019-01-22] VITALS (20 sets, daily range): BP systolic 133–185; BP diastolic 51–82
--- NOTE | 2019-01-22 06:13 | NUR ---
Problems reprioritized. Patient report given, questions answered & plan of care reviewed with Della ERIC.
--- NOTE | 2019-01-22 06:16 | NUR ---
Patient in room PCU 3008. I have received report from [facility] and had the opportunity to ask questions and assume patient care.
[2019-01-22] MEDS: hydrALAZINE 25 MG tablet PO PRN (07:19)
[2019-01-22] MEDS: lactobacillus rhamnosus 10,000 MMU CELLS/CAPSULE PO SCH ×2 (07:20→20:43)
[2019-01-22] MEDS: thyroid, pork 30mg tablet PO SCH (07:20)
[2019-01-22] MEDS: simethicone 125mg capsule PO SCH ×3 (07:20→20:43)
[2019-01-22] MEDS: metoprolol succinate 25mg (24-HOUR) SR. Tablet PO SCH (07:20)
[2019-01-22] MEDS: vitamin D (cholecalciferol) 1,000 unit tablet PO SCH (07:20)
[2019-01-22] MEDS: cloNIDine 0.1 mg tablet PO SCH ×3 (07:21→21:19)
[2019-01-22] MEDS: heparin, porcine 5000 units/ml vial SQ SCH ×2 (08:00→20:00)
[2019-01-22] MEDS: aspirin 81mg tablet.DR PO SCH (08:00)
[2019-01-22 11:16] LABS: BASOPHILS # (AUTO) 0.1 X10'3 (0-0.2); BASOPHILS % (AUTO) 0.7 % (0-1); EOSINOPHILS # (AUTO) 0.5 X10'3 (0-0.9); EOSINOPHILS % (AUTO) 7.2 % (0-6); LYMPHOCYTES # (AUTO) 1.4 X10'3 (1.1-4.8); LYMPHOCYTES % (AUTO) 18.5 % (21-51); MEAN CORPUSCULAR VOLUME 91.1 FL (78-98); MEAN PLATELET VOLUME 9.2 FL (7.4-10.4); MONOCYTES # (AUTO) 0.8 X10'3 (0-0.9); MONOCYTES % (AUTO) 10.9 % (2-12); NEUTROPHILS # (AUTO) 4.6 X10'3 (1.8-7.7); NEUTROPHILS % (AUTO) 62.7 % (42-75); PRE OP HEMATOCRIT 25.6 % (35.0-45.0); PRE OP PLATELET COUNT 195 X10'3 (140-440); RED BLOOD COUNT 2.82 X10'6 (4.20-5.60); RED CELL DISTRIBUTION WIDTH 14.7 % (11.5-14.5)
[2019-01-22 11:22] LABS: PRE OP HEMOGLOBIN 8.5 g/dL (12.0-16.0)
--- NOTE | 2019-01-22 11:24 | NUR ---
Received call from lab, notified of abnormal pre-op Hgb value of 8.5. Called OR plater barrel and notified him of abnormal lab, he states this lab value should not be a problem.
[2019-01-22 11:30] LABS: ALBUMIN 2.7 G/DL (3.4-5.0); ALBUMIN/GLOBULIN RATIO 0.7 (1.1-1.5); ALKALINE PHOSPHATASE 75 IU/L (46-116); BLOOD UREA NITROGEN 69 MG/DL (7-18); BUN/CREATININE RATIO 9.2 (6.6-38.0); CALCIUM 8.6 MG/DL (8.5-10.1); CHLORIDE 106 MMOL/L (99-107); CREATININE 7.48 MG/DL (0.40-0.90); PRE OP ALT 20 U/L (30-65); PRE OP ANION GAP 14 (8-16); PRE OP AST 10 U/L (10-37); PRE OP BILIRUB, TOTAL 0.6 MG/DL (0.0-1.0); PRE OP GLUCOSE 101 MG/DL (70-104); PRE OP POTASSIUM 4.5 MMOL/L (3.4-5.1); PRE OP SODIUM 138 MMOL/L (135-145); TOTAL CARBON DIOXIDE 17.8 MMOL/L (24-32); TOTAL PROTEIN 6.8 G/DL (6.4-8.2); eGFR 5 ML/MIN
[2019-01-22] MEDS: levoFLOXACIN 250mg tablet PO SCH (11:41)
[2019-01-22] MEDS: acetaminophen 325mg tablet PO PRN ×2 (12:02→18:03)
[2019-01-22] MEDS ORDERED: LIDOcaine 1% 30ml preserv. free vial ONE (14:57)
[2019-01-22] MEDS ORDERED: heparin 10,000 units/1 ML INJ ONE (14:57)
[2019-01-22] MEDS ORDERED: BUPIVAcaine/PF 2.5mg/ml (0.25%) 10ml vial ONE (14:57)
--- NOTE | 2019-01-22 14:57 | NUR ---
Called report to Recovery. Notified them of high BP low HR. Patient taken down to OR by OR transport.
[2019-01-22] MEDS ORDERED: midazolam 2 mg/2 ml injection ONE (14:59)
[2019-01-22] MEDS ORDERED: fentaNYL/PF 50MCG/1 ML 2ML syringe ONE (14:59)
[2019-01-22] MEDS ORDERED: famotidine/PF 10 mg/ml inj IV ONE (15:00)
[2019-01-22] MEDS ORDERED: propofol inj 20 ML IV ONE (15:02)
[2019-01-22] MEDS ORDERED: ringers solution, lacted 1,000 ML IV SCH (15:14)
[2019-01-22] MEDS ORDERED: proCHLORperazine 10 MG/2 ml inj IV PRN (15:15)
[2019-01-22] MEDS ORDERED: meperidine/PF 25mg/ml syringe IV PRN ×3 (15:15)
[2019-01-22] MEDS ORDERED: morphine 4 MG/ML inj SYRINge IV PRN ×2 (15:15)
[2019-01-22] MEDS ORDERED: ondansetron/PF 4mg/2ml inj IV PRN (15:15)
[2019-01-22] MEDS ORDERED: sevoflurane 250ml liquid IH ONE (15:21)
[2019-01-22] MEDS ORDERED: ceFAZolin 1000mg inj ONE ×2 (15:52)
[2019-01-22] MEDS ORDERED: ePHEDrine 50MG/ML INJ. ONE (15:52)
--- NOTE | 2019-01-22 17:55 | NUR ---
Patient returned back from the OR. Vital signs stable. BP:170/66 HR:63 Oxygen 98 on room air; temp 97.8. Tylenol was given for her pain. Sight of surgery R FA has island dressing on. It is clean dry and intact.
--- NOTE | 2019-01-22 18:39 | NUR ---
Problems reprioritized. Patient report given, questions answered & plan of care reviewed with Suyapa .
[2019-01-23] MEDS: acetaminophen 325mg tablet PO PRN ×2 (00:49→08:05)
[2019-01-23 01:45] VITALS: BP 135/53
[2019-01-23 02:00] VITALS: BP 135/53
--- NOTE | 2019-01-23 06:49 | NUR ---
Problems reprioritized. Patient report given, questions answered & plan of care reviewed with Della ERIC.
[2019-01-23 07:00] VITALS: BP 148/60
[2019-01-23] MEDS: heparin, porcine 5000 units/ml vial SQ SCH ×2 (08:00→08:04)
[2019-01-23] MEDS: simethicone 125mg capsule PO SCH ×2 (08:05→12:57)
[2019-01-23] MEDS: cloNIDine 0.1 mg tablet PO SCH ×2 (08:05→12:57)
[2019-01-23] MEDS: vitamin D (cholecalciferol) 1,000 unit tablet PO SCH (08:05)
[2019-01-23] MEDS: lactobacillus rhamnosus 10,000 MMU CELLS/CAPSULE PO SCH (08:05)
[2019-01-23] MEDS: aspirin 81mg tablet.DR PO SCH (08:05)
[2019-01-23] MEDS: metoprolol succinate 25mg (24-HOUR) SR. Tablet PO SCH (08:05)
[2019-01-23] MEDS: thyroid, pork 30mg tablet PO SCH (08:05)
[2019-01-23] MEDS: levoFLOXACIN 250mg tablet PO SCH (11:27)
--- NOTE | 2019-01-23 14:00 | NUR ---
Patient discharged. All belongings were gathered. Report was called and given to Gypsy at [facility]. Tele was removed and returned to tele room. Patient was picked up by transport. Addendum: 01/23/19 at 1557 by Della Estrella RN Wound care pictures were taken.
== END 2019-01-23 14:15 | DRG 673 ==
LOC: ER 16:48 → PCU 3S 19:49 → CMPBEDREQ 01-14 18:30 → PCU 3S 01-16 07:36
PROVIDERS: ATTEND Internal Medicine Critical Care Medicine
PROC: 031B0ZF Bypass Right Radial Artery to Lower Arm Vein, Open Approach (ICD-10-PCS; principal; 2019-01-22 15:21)
DX: N39.0 Urinary tract infection, site not specified (principal); N17.0 Acute kidney failure with tubular necrosis; I75 Atheroembolism; I75.022 Atheroembolism of left lower extremity; N18.4 Chronic kidney disease, stage 4 (severe); B96.89 Other specified bacterial agents as the cause of diseases classified elsewhere; E03.9 Hypothyroidism, unspecified; G89.4 Chronic pain syndrome; K59.09 Other constipation; B95.2 Enterococcus as the cause of diseases classified elsewhere; I12.9 Hypertensive chronic kidney disease with stage 1 through stage 4 chronic kidney disease, or unspecified chronic kidney disease; Z88.0 Allergy status to penicillin; Z79.899 Other long term (current) drug therapy; Z79.82 Long term (current) use of aspirin
CPT/HCPCS: 36415; 71045; 74176; 76775; 80053; 80061; 80069; 81001; 83605; 84145; 84443; 85025; 85730; 87040; 87077; 87081; 87088; 87186; 93005; 93306; 93922; 93930; 93970; 93975; 96365; 97110; 97116; 97161; 97530; 99285; A4215; A4618; A7000; G0378; J0360; J0690; J1644; J1956; J2001; J2150; J2250; J2405; J2704; J3010; J3490; J7030; J7040; J7120; Q4081

== ENCOUNTER 2019-01-29 16:06 | Inpatient (IN) | payer MEDICARE, OTHER ==
[~2019-01-29] VITALS: Ht 162.6 cm; Wt 92.6 kg
[2019-01-29 17:08] LABS: BASOPHILS % (AUTO) 0.4 % (0-1); EOSINOPHILS # (AUTO) 0.7 X10'3 (0-0.9); EOSINOPHILS % (AUTO) 8.3 % (0-6); HEMATOCRIT 24.8 % (35.0-45.0); HEMOGLOBIN 8.1 g/dl (12.0-16.0); LYMPHOCYTES # (AUTO) 1.5 X10'3 (1.1-4.8); LYMPHOCYTES % (AUTO) 17.7 % (21-51); MEAN CORPUSCULAR HEMOGLOBIN 29.6 PG (27.0-31.0); MEAN CORPUSCULAR HGB CONC 32.4 g/dL (33.0-36.5); MEAN CORPUSCULAR VOLUME 91.2 FL (78-98); MEAN PLATELET VOLUME 9.2 FL (7.4-10.4); MONOCYTES # (AUTO) 0.9 X10'3 (0-0.9); NEUTROPHILS # (AUTO) 5.3 X10'3 (1.8-7.7); NEUTROPHILS % (AUTO) 62.6 % (42-75); PLATELET COUNT 202 X10'3 (140-440); RED BLOOD COUNT 2.72 X10'6 (4.20-5.60); WHITE BLOOD COUNT 8.5 X10'3 (4.5-11.0)
[2019-01-29 17:20] LABS: ALANINE AMINOTRANSFERASE 9 U/L (12-78); ALBUMIN 2.8 G/DL (3.4-5.0); ALBUMIN/GLOBULIN RATIO 0.7 (1.1-1.5); ALKALINE PHOSPHATASE 84 IU/L (46-116); ANION GAP 17 (8-16); ASPARTATE AMINO TRANSFERASE 11 U/L (10-37); BILIRUBIN,TOTAL 0.5 MG/DL (0.1-1.0); BLOOD UREA NITROGEN 97 MG/DL (7-18); BUN/CREATININE RATIO 9.8 (6.6-38.0); CALCIUM 8.1 MG/DL (8.5-10.1); CHLORIDE 97 MMOL/L (99-107); CREATININE 9.89 MG/DL (0.40-0.90); GLUCOSE 110 MG/DL (70-104); MAGNESIUM 2.5 MG/DL (1.5-2.4); PHOSPHORUS 7.4 MG/DL (2.3-4.5); POTASSIUM 4.8 MMOL/L (3.5-5.1); SODIUM 130 MMOL/L (135-145); TOTAL CARBON DIOXIDE 15.9 MMOL/L (24-32); eGFR 4 ML/MIN
--- NOTE | 2019-01-29 18:37 | NUR ---
DISCUSSED WITH MD ADAMSON IF UA NEEDED, ORDER TO CANCEL UA
[2019-01-29] MEDS ORDERED: CLON0.2T PO (18:54)
[2019-01-29] MEDS ORDERED: HEPA500017 SUBCUT (18:57)
[2019-01-29] MEDS ORDERED: HYDR-4069 PO (19:00)
[2019-01-29] MEDS ORDERED: LEVO500T2 PO (19:09)
[2019-01-29 19:48] LABS: PARTIAL THROMBOPLASTIN TIME 36 SECONDS (22-32)
[2019-01-29] MEDS ORDERED: hydrALAZINE 25 MG tablet PO PRN (20:05)
[2019-01-29] MEDS ORDERED: acetaminophen 325mg tablet PO PRN (20:10)
[2019-01-29 21:00] VITALS: BP 108/88
[2019-01-29] MEDS: cloNIDine 0.1 mg tablet PO SCH (21:00)
[2019-01-30] VITALS (8 sets, daily range): BP systolic 94–130; BP diastolic 49–67
[2019-01-30 05:19] LABS: BASOPHILS % (AUTO) 0.3 % (0-1); EOSINOPHILS # (AUTO) 0.8 X10'3 (0-0.9); EOSINOPHILS % (AUTO) 10.1 % (0-6); HEMATOCRIT 22.6 % (35.0-45.0); HEMOGLOBIN 7.3 g/dl (12.0-16.0); LYMPHOCYTES % (AUTO) 24.3 % (21-51); MEAN CORPUSCULAR HEMOGLOBIN 29.6 PG (27.0-31.0); MEAN CORPUSCULAR HGB CONC 32.3 g/dL (33.0-36.5); MEAN CORPUSCULAR VOLUME 91.6 FL (78-98); MEAN PLATELET VOLUME 8.9 FL (7.4-10.4); MONOCYTES # (AUTO) 1.1 X10'3 (0-0.9); MONOCYTES % (AUTO) 12.6 % (2-12); NEUTROPHILS # (AUTO) 4.4 X10'3 (1.8-7.7); NEUTROPHILS % (AUTO) 52.7 % (42-75); PLATELET COUNT 181 X10'3 (140-440); RED BLOOD COUNT 2.47 X10'6 (4.20-5.60); RED CELL DISTRIBUTION WIDTH 14.7 % (11.5-14.5); WHITE BLOOD COUNT 8.3 X10'3 (4.5-11.0)
[2019-01-30 05:35] LABS: ALANINE AMINOTRANSFERASE 9 U/L (12-78); ALBUMIN 2.5 G/DL (3.4-5.0); ALBUMIN/GLOBULIN RATIO 0.6 (1.1-1.5); ALKALINE PHOSPHATASE 76 IU/L (46-116); ANION GAP 16 (8-16); ASPARTATE AMINO TRANSFERASE 10 U/L (10-37); BILIRUBIN,TOTAL 0.5 MG/DL (0.1-1.0); BLOOD UREA NITROGEN 100 MG/DL (7-18); BUN/CREATININE RATIO 9.9 (6.6-38.0); CALCIUM 8.2 MG/DL (8.5-10.1); CHLORIDE 99 MMOL/L (99-107); CREATININE 10.15 MG/DL (0.40-0.90); GLUCOSE 99 MG/DL (70-104); MAGNESIUM 2.5 MG/DL (1.5-2.4); PHOSPHORUS 7.6 MG/DL (2.3-4.5); POTASSIUM 4.5 MMOL/L (3.5-5.1); SODIUM 131 MMOL/L (135-145); TOTAL CARBON DIOXIDE 16.4 MMOL/L (24-32); TOTAL PROTEIN 6.4 G/DL (6.4-8.2); eGFR 4 ML/MIN
--- NOTE | 2019-01-30 06:22 | NUR ---
Problems reprioritized. Patient report given, questions answered & plan of care reviewed with Tamra ERIC.
--- NOTE | 2019-01-30 06:29 | NUR ---
Patient in room AGUSTIN 352. I have received report from HERNESTO Arevalo and had the opportunity to ask questions and assume patient care.
[2019-01-30 07:01] LABS: TOTAL CELLS COUNTED 100
[2019-01-30 07:02] LABS: PLATELET ESTIMATE NORMAL
[2019-01-30 07:04] LABS: SCHISTOCYTES FEW
[2019-01-30] MEDS: heparin, porcine 5000 units/ml vial SQ SCH ×2 (08:00→20:00)
[2019-01-30] MEDS: cloNIDine 0.1 mg tablet PO SCH ×3 (08:00→20:47)
[2019-01-30] MEDS: losartan 50mg tablet PO SCH (08:00)
[2019-01-30] MEDS: HYDROchlorothiazide 12.5mg capsule PO SCH (08:00)
[2019-01-30] MEDS: cetirizine 10mg tablet PO SCH (08:00)
[2019-01-30] MEDS: aspirin 81mg tablet.DR PO SCH (09:28)
[2019-01-30] MEDS: levoFLOXACIN 250mg tablet PO SCH (09:28)
[2019-01-30] MEDS: thyroid, pork 30mg tablet PO SCH (09:33)
[2019-01-30] MEDS: metoprolol succinate 25mg (24-HOUR) SR. Tablet PO SCH (09:34)
[2019-01-30] MEDS: vitamin D (cholecalciferol) 1,000 unit tablet PO SCH (09:35)
[2019-01-30] MEDS ORDERED: normal saline 1000ml 250 ML IV PRN (09:55)
[2019-01-30] MEDS ORDERED: epoetin 20,000 units/ml inj IV ONE (09:55)
[2019-01-30] MEDS ORDERED: normal saline 1000ml 100 ML IV PRN (09:55)
[2019-01-30] MEDS ORDERED: heparin 1,000 units/ml 10ml inj HE ONE ×3 (10:00→15:08)
[2019-01-30] MEDS ORDERED: vancomycin/NS 1 GM ADD-VANTAGE 250 ML IV STA (10:00)
[2019-01-30 11:24] LABS: % IRON SATURATION 14 % (11-46); IRON 26 UG/DL (49-151); TOTAL IRON BINDING CAPACITY 188 UG/DL (259-388)
--- NOTE | 2019-01-30 11:36 | NUR ---
Malnutrition consult: Patient's current wt unreliable as it is patient stated. Pt with documented wt of 99 kg 01/14/19 using bed scale. Wt likely to fluctuate as pt with healing AV fistula likely to start dialysis this admit. Unable to assess PO intake at this time as pt currently NPO. Pt with no edema or decrease in muscle strength. No visible fat/muscle wasting. Pt currently does not meet criteria for malnutrition at this time. Will continue to follow. Addendum: 01/30/19 at [address] Amended: Links added.
[2019-01-30] MEDS ORDERED: heparin 1,000 units/ml 10ml inj ICATH ONE (14:40)
[2019-01-30] MEDS ORDERED: LIDOcaine 1% (10mg/ml) 2ml vial SQ ONE (14:40)
[2019-01-30] MEDS ORDERED: fentaNYL/PF 50MCG/1 ML 2ML syringe IV PRN (14:40)
[2019-01-30] MEDS ORDERED: midazolam 2 mg/2 ml injection IV PRN (14:40)
[2019-01-30] MEDS ORDERED: midazolam 2 mg/2 ml injection IV ONE (15:09)
[2019-01-30] MEDS ORDERED: fentaNYL/PF 50MCG/1 ML 2ML syringe IV ONE (15:09)
[2019-01-30] MEDS ORDERED: LIDOcaine 1%/PF 5ML 10 MG/ML VIAL IJ ONE (15:09)
--- NOTE | 2019-01-30 18:40 | NUR ---
Patient in room AGUSTIN 352. I have received report from Aydin and had the opportunity to ask questions and assume patient care.
--- NOTE | 2019-01-30 18:45 | NUR ---
Problems reprioritized. Patient report given, questions answered & plan of care reviewed with HERNESTO Nicholson.
[2019-01-30] MEDS: lactobacillus rhamnosus 10,000 MMU CELLS/CAPSULE PO SCH (20:00)
[2019-01-30] MEDS: ondansetron/PF 4mg/2ml inj IV PRN (20:32)
[2019-01-31] VITALS: BP 136/66
--- NOTE | 2019-01-31 00:07 | NUR ---
Problems reprioritized. Patient report given, questions answered & plan of care reviewed with Jana ERIC.
[2019-01-31 05:52] LABS: BASOPHILS % (AUTO) 0.5 % (0-1); EOSINOPHILS # (AUTO) 0.4 X10'3 (0-0.9); EOSINOPHILS % (AUTO) 5.8 % (0-6); HEMATOCRIT 26.2 % (35.0-45.0); HEMOGLOBIN 8.9 g/dl (12.0-16.0); LYMPHOCYTES # (AUTO) 1.6 X10'3 (1.1-4.8); LYMPHOCYTES % (AUTO) 21.5 % (21-51); MEAN CORPUSCULAR HEMOGLOBIN 30.2 PG (27.0-31.0); MEAN CORPUSCULAR HGB CONC 33.9 g/dL (33.0-36.5); MEAN CORPUSCULAR VOLUME 88.9 FL (78-98); MEAN PLATELET VOLUME 9.1 FL (7.4-10.4); MONOCYTES % (AUTO) 12.7 % (2-12); NEUTROPHILS # (AUTO) 4.5 X10'3 (1.8-7.7); NEUTROPHILS % (AUTO) 59.5 % (42-75); PLATELET COUNT 183 X10'3 (140-440); RED BLOOD COUNT 2.95 X10'6 (4.20-5.60); RED CELL DISTRIBUTION WIDTH 14.5 % (11.5-14.5); WHITE BLOOD COUNT 7.6 X10'3 (4.5-11.0)
--- NOTE | 2019-01-31 06:11 | NUR ---
Problems reprioritized. Patient report given, questions answered & plan of care reviewed with Tamra ERIC. Addendum: 01/31/19 at 0612 by Jana Chow RN Amended: Links added.
--- NOTE | 2019-01-31 06:24 | NUR ---
Patient in room AGUSTIN 352. I have received report from HERNESTO Bates and had the opportunity to ask questions and assume patient care.
[2019-01-31 06:27] LABS: ALANINE AMINOTRANSFERASE 8 U/L (12-78); ALBUMIN 2.4 G/DL (3.4-5.0); ALBUMIN/GLOBULIN RATIO 0.6 (1.1-1.5); ALKALINE PHOSPHATASE 68 IU/L (46-116); ANION GAP 11 (8-16); ASPARTATE AMINO TRANSFERASE 13 U/L (10-37); BILIRUBIN,TOTAL 0.8 MG/DL (0.1-1.0); BLOOD UREA NITROGEN 49 MG/DL (7-18); BUN/CREATININE RATIO 8.3 (6.6-38.0); CALCIUM 8.2 MG/DL (8.5-10.1); CHLORIDE 101 MMOL/L (99-107); CREATININE 5.87 MG/DL (0.40-0.90); GLUCOSE 100 MG/DL (70-104); MAGNESIUM 2.4 MG/DL (1.5-2.4); PHOSPHORUS 4.9 MG/DL (2.3-4.5); POTASSIUM 4.1 MMOL/L (3.5-5.1); SODIUM 137 MMOL/L (135-145); TOTAL CARBON DIOXIDE 24.7 MMOL/L (24-32); TOTAL PROTEIN 6.4 G/DL (6.4-8.2); eGFR 7 ML/MIN
[2019-01-31 07:00] VITALS: BP 129/67
[2019-01-31] MEDS: cloNIDine 0.1 mg tablet PO SCH ×3 (07:23→22:06)
[2019-01-31] MEDS: HYDROchlorothiazide 12.5mg capsule PO SCH (07:24)
[2019-01-31] MEDS: heparin, porcine 5000 units/ml vial SQ SCH ×2 (07:24→22:05)
[2019-01-31] MEDS: losartan 50mg tablet PO SCH (07:24)
[2019-01-31] MEDS: metoprolol succinate 25mg (24-HOUR) SR. Tablet PO SCH (07:25)
[2019-01-31] MEDS: thyroid, pork 30mg tablet PO SCH (07:34)
[2019-01-31] MEDS: lactobacillus rhamnosus 10,000 MMU CELLS/CAPSULE PO SCH ×2 (07:34→22:06)
[2019-01-31] MEDS: aspirin 81mg tablet.DR PO SCH (07:35)
[2019-01-31] MEDS: levoFLOXACIN 250mg tablet PO SCH (07:35)
[2019-01-31] MEDS: vitamin D (cholecalciferol) 1,000 unit tablet PO SCH (07:35)
[2019-01-31] MEDS: cetirizine 10mg tablet PO SCH (07:36)
[2019-01-31] MEDS ORDERED: heparin 1,000unit/ml 10ml vial 10 ML IV ONE (09:41)
[2019-01-31] MEDS ORDERED: normal saline 1000ml 250 ML IV PRN (09:45)
[2019-01-31] MEDS ORDERED: epoetin 20,000 units/ml inj IV ONE (09:45)
[2019-01-31] MEDS ORDERED: heparin 1,000 units/ml 10ml inj HE ONE ×2 (09:45)
[2019-01-31 11:00] VITALS: BP 119/48
[2019-01-31] MEDS: ondansetron/PF 4mg/2ml inj IV PRN (13:02)
[2019-01-31] MEDS: acetaminophen 325mg tablet PO PRN (13:56)
[2019-01-31 14:00] VITALS: BP 119/48
[2019-01-31] MEDS ORDERED: proCHLORperazine 10 MG/2 ml inj IV ONE (14:15)
[2019-01-31 18:00] VITALS: BP 102/86
--- NOTE | 2019-01-31 18:42 | NUR ---
Problems reprioritized. Patient report given, questions answered & plan of care reviewed with HERNESTO Bates.
[2019-02-01] VITALS: BP 96/46
[2019-02-01 05:52] LABS: BASOPHILS % (AUTO) 0.5 % (0-1); EOSINOPHILS # (AUTO) 0.8 X10'3 (0-0.9); EOSINOPHILS % (AUTO) 8.2 % (0-6); HEMATOCRIT 28.4 % (35.0-45.0); HEMOGLOBIN 9.5 g/dl (12.0-16.0); LYMPHOCYTES # (AUTO) 2.3 X10'3 (1.1-4.8); LYMPHOCYTES % (AUTO) 24.5 % (21-51); MEAN CORPUSCULAR HEMOGLOBIN 29.9 PG (27.0-31.0); MEAN CORPUSCULAR HGB CONC 33.3 g/dL (33.0-36.5); MEAN CORPUSCULAR VOLUME 89.9 FL (78-98); MEAN PLATELET VOLUME 8.8 FL (7.4-10.4); MONOCYTES # (AUTO) 1.3 X10'3 (0-0.9); MONOCYTES % (AUTO) 14.2 % (2-12); NEUTROPHILS % (AUTO) 52.6 % (42-75); PLATELET COUNT 213 X10'3 (140-440); RED BLOOD COUNT 3.16 X10'6 (4.20-5.60); RED CELL DISTRIBUTION WIDTH 14.7 % (11.5-14.5); WHITE BLOOD COUNT 9.5 X10'3 (4.5-11.0)
[2019-02-01 06:22] LABS: ALANINE AMINOTRANSFERASE 10 U/L (12-78); ALBUMIN 2.6 G/DL (3.4-5.0); ALBUMIN/GLOBULIN RATIO 0.6 (1.1-1.5); ALKALINE PHOSPHATASE 71 IU/L (46-116); ANION GAP 9 (8-16); ASPARTATE AMINO TRANSFERASE 17 U/L (10-37); BILIRUBIN,TOTAL 0.7 MG/DL (0.1-1.0); BLOOD UREA NITROGEN 27 MG/DL (7-18); BUN/CREATININE RATIO 5.2 (6.6-38.0); CALCIUM 8.4 MG/DL (8.5-10.1); CHLORIDE 100 MMOL/L (99-107); CREATININE 5.19 MG/DL (0.40-0.90); GLUCOSE 118 MG/DL (70-104); MAGNESIUM 2.3 MG/DL (1.5-2.4); PHOSPHORUS 4.5 MG/DL (2.3-4.5); POTASSIUM 4.4 MMOL/L (3.5-5.1); SODIUM 137 MMOL/L (135-145); TOTAL PROTEIN 6.7 G/DL (6.4-8.2); eGFR 8 ML/MIN
--- NOTE | 2019-02-01 06:54 | NUR ---
Patient in room AGUSTIN 352. I have received report from Jacquelyn ERIC and had the opportunity to ask questions and assume patient care.
[2019-02-01 07:00] VITALS: BP 142/63
[2019-02-01 07:32] LABS: TOTAL CELLS COUNTED 100
[2019-02-01 07:33] LABS: PLATELET ESTIMATE NORMAL
[2019-02-01] MEDS: thyroid, pork 30mg tablet PO SCH (08:58)
[2019-02-01] MEDS: levoFLOXACIN 250mg tablet PO SCH (08:58)
[2019-02-01] MEDS: cetirizine 10mg tablet PO SCH (08:58)
[2019-02-01] MEDS: lactobacillus rhamnosus 10,000 MMU CELLS/CAPSULE PO SCH ×2 (08:58→20:38)
[2019-02-01] MEDS: metoprolol succinate 25mg (24-HOUR) SR. Tablet PO SCH (08:59)
[2019-02-01] MEDS: losartan 50mg tablet PO SCH (08:59)
[2019-02-01] MEDS: aspirin 81mg tablet.DR PO SCH (08:59)
[2019-02-01] MEDS: vitamin D (cholecalciferol) 1,000 unit tablet PO SCH (08:59)
[2019-02-01] MEDS: cloNIDine 0.1 mg tablet PO SCH ×3 (08:59→20:38)
[2019-02-01] MEDS: HYDROchlorothiazide 12.5mg capsule PO SCH (09:00)
[2019-02-01] MEDS: heparin, porcine 5000 units/ml vial SQ SCH ×2 (09:00→20:39)
[2019-02-01 11:00] VITALS: BP 99/49
--- NOTE | 2019-02-01 18:23 | NUR ---
Patient in room AGUSTIN 352. I have received report from Dung ERIC and had the opportunity to ask questions and assume patient care.
--- NOTE | 2019-02-01 18:53 | NUR ---
Problems reprioritized. Patient report given, questions answered & plan of care reviewed with Laurie ERIC.
[2019-02-01 20:00] VITALS: BP 110/52
[2019-02-01] MEDS: nystatin 15 GM powder TP SCH (20:39)
[2019-02-02] VITALS: BP 116/53
[2019-02-02 05:28] LABS: BASOPHILS % (AUTO) 0.5 % (0-1); EOSINOPHILS # (AUTO) 1.1 X10'3 (0-0.9); EOSINOPHILS % (AUTO) 12.2 % (0-6); HEMATOCRIT 27.5 % (35.0-45.0); HEMOGLOBIN 9.2 g/dl (12.0-16.0); LYMPHOCYTES # (AUTO) 2.3 X10'3 (1.1-4.8); LYMPHOCYTES % (AUTO) 24.3 % (21-51); MEAN CORPUSCULAR HEMOGLOBIN 30.2 PG (27.0-31.0); MEAN CORPUSCULAR HGB CONC 33.4 g/dL (33.0-36.5); MEAN CORPUSCULAR VOLUME 90.4 FL (78-98); MEAN PLATELET VOLUME 8.5 FL (7.4-10.4); MONOCYTES # (AUTO) 1.2 X10'3 (0-0.9); NEUTROPHILS # (AUTO) 4.7 X10'3 (1.8-7.7); PLATELET COUNT 202 X10'3 (140-440); RED BLOOD COUNT 3.04 X10'6 (4.20-5.60); RED CELL DISTRIBUTION WIDTH 14.7 % (11.5-14.5); WHITE BLOOD COUNT 9.3 X10'3 (4.5-11.0)
[2019-02-02 05:44] LABS: ALANINE AMINOTRANSFERASE 12 U/L (12-78); ALBUMIN 2.5 G/DL (3.4-5.0); ALBUMIN/GLOBULIN RATIO 0.6 (1.1-1.5); ALKALINE PHOSPHATASE 67 IU/L (46-116); ANION GAP 10 (8-16); ASPARTATE AMINO TRANSFERASE 15 U/L (10-37); BILIRUBIN,TOTAL 0.6 MG/DL (0.1-1.0); BLOOD UREA NITROGEN 37 MG/DL (7-18); BUN/CREATININE RATIO 5.7 (6.6-38.0); CALCIUM 8.3 MG/DL (8.5-10.1); CHLORIDE 99 MMOL/L (99-107); GLUCOSE 103 MG/DL (70-104); MAGNESIUM 2.3 MG/DL (1.5-2.4); PHOSPHORUS 5.2 MG/DL (2.3-4.5); POTASSIUM 3.9 MMOL/L (3.5-5.1); SODIUM 136 MMOL/L (135-145); TOTAL CARBON DIOXIDE 26.9 MMOL/L (24-32); TOTAL PROTEIN 6.4 G/DL (6.4-8.2); eGFR 6 ML/MIN
--- NOTE | 2019-02-02 06:20 | NUR ---
Problems reprioritized. Patient report given, questions answered & plan of care reviewed with Jose RN.
--- NOTE | 2019-02-02 06:30 | NUR ---
Patient in room AGUSTIN 352. I have received report from Susanna ERIC and had the opportunity to ask questions and assume patient care.
[2019-02-02 07:35] VITALS: BP 150/65
[2019-02-02] MEDS: nystatin 15 GM powder TP SCH ×3 (08:00→20:55)
[2019-02-02] MEDS ORDERED: normal saline 1000ml 250 ML IV PRN (08:03)
[2019-02-02] MEDS ORDERED: heparin 1,000unit/ml 10ml vial 10 ML IV ONE (08:03)
[2019-02-02] MEDS ORDERED: epoetin 20,000 units/ml inj IV ONE (08:05)
[2019-02-02] MEDS ORDERED: heparin 1,000 units/ml 10ml inj HE ONE (08:10)
[2019-02-02] MEDS: aspirin 81mg tablet.DR PO SCH (08:43)
[2019-02-02] MEDS: lactobacillus rhamnosus 10,000 MMU CELLS/CAPSULE PO SCH ×2 (08:44→20:53)
[2019-02-02] MEDS: levoFLOXACIN 250mg tablet PO SCH (08:44)
[2019-02-02] MEDS: cetirizine 10mg tablet PO SCH (08:45)
[2019-02-02] MEDS: vitamin D (cholecalciferol) 1,000 unit tablet PO SCH (08:45)
[2019-02-02] MEDS: losartan 50mg tablet PO SCH (08:46)
[2019-02-02] MEDS: thyroid, pork 30mg tablet PO SCH (08:46)
[2019-02-02] MEDS: HYDROchlorothiazide 12.5mg capsule PO SCH (09:49)
[2019-02-02] MEDS: cloNIDine 0.1 mg tablet PO SCH ×3 (09:50→20:53)
[2019-02-02] MEDS: metoprolol succinate 25mg (24-HOUR) SR. Tablet PO SCH (09:51)
[2019-02-02] MEDS: heparin, porcine 5000 units/ml vial SQ SCH ×2 (09:53→20:55)
[2019-02-02 11:00] VITALS: BP 108/61
--- NOTE | 2019-02-02 13:46 | NUR ---
WOUND INFECTION EDUCATION PROVIDED BY WOUND CARE 1. Patient instructed to call their primary doctor, or go the ED immediately if any of the following symptoms occur: * Increased pain in wound * Increase in drainage from the wound * Redness in the skin surrounding the wound * Warmth in the skin surrounding the wound * Bleeding from the wound * Temperature of 101 or greater 2. If any of these occur while in the hospital tell a nurse immediately. Addendum: 02/02/19 at 1347 by Tabatha Díaz RN Amended: Links added.
--- NOTE | 2019-02-02 15:10 | NUR ---
Initial: Pt admit acute kidney failure and UTI awaiting bed at [facility] w/ Zuly for new HD needs. Hx CKD III. PO 50% avg meals w/ 100% breakfast this AM good given age. LBM 02/01. Will continue to monitor. Rec: 1. continue renal diet 2. monitor for ONS needs 3. Phos binder per MD on HD 4. wt per rx Addendum: 02/02/19 at [address] Amended: Links added.
--- NOTE | 2019-02-02 18:30 | NUR ---
Problems reprioritized. Patient report given, questions answered & plan of care reviewed with Susanna ERIC.
--- NOTE | 2019-02-02 19:25 | NUR ---
Patient in room AGUSTIN 352. I have received report from Jose ERIC and had the opportunity to ask questions and assume patient care.
[2019-02-02 20:00] VITALS: BP 122/63
[2019-02-03] VITALS: BP 123/60
[2019-02-03 06:23] LABS: BASOPHILS # (AUTO) 0.1 X10'3 (0-0.2); BASOPHILS % (AUTO) 0.6 % (0-1); EOSINOPHILS # (AUTO) 1.2 X10'3 (0-0.9); EOSINOPHILS % (AUTO) 12.3 % (0-6); HEMATOCRIT 28.8 % (35.0-45.0); HEMOGLOBIN 9.7 g/dl (12.0-16.0); LYMPHOCYTES # (AUTO) 2.7 X10'3 (1.1-4.8); LYMPHOCYTES % (AUTO) 27.9 % (21-51); MEAN CORPUSCULAR HEMOGLOBIN 30.1 PG (27.0-31.0); MEAN CORPUSCULAR HGB CONC 33.5 g/dL (33.0-36.5); MEAN CORPUSCULAR VOLUME 89.7 FL (78-98); MEAN PLATELET VOLUME 8.8 FL (7.4-10.4); MONOCYTES # (AUTO) 1.1 X10'3 (0-0.9); MONOCYTES % (AUTO) 10.9 % (2-12); NEUTROPHILS # (AUTO) 4.7 X10'3 (1.8-7.7); NEUTROPHILS % (AUTO) 48.3 % (42-75); PLATELET COUNT 210 X10'3 (140-440); RED BLOOD COUNT 3.22 X10'6 (4.20-5.60); WHITE BLOOD COUNT 9.6 X10'3 (4.5-11.0)
--- NOTE | 2019-02-03 06:30 | NUR ---
Patient in room AGUSTIN 352. I have received report from Susanna ERIC and had the opportunity to ask questions and assume patient care.
--- NOTE | 2019-02-03 06:37 | NUR ---
Problems reprioritized. Patient report given, questions answered & plan of care reviewed with Jose RN.
[2019-02-03 06:51] LABS: ALANINE AMINOTRANSFERASE 11 U/L (12-78); ALBUMIN 2.6 G/DL (3.4-5.0); ALBUMIN/GLOBULIN RATIO 0.6 (1.1-1.5); ALKALINE PHOSPHATASE 73 IU/L (46-116); ANION GAP 12 (8-16); ASPARTATE AMINO TRANSFERASE 13 U/L (10-37); BILIRUBIN,TOTAL 0.8 MG/DL (0.1-1.0); BLOOD UREA NITROGEN 47 MG/DL (7-18); CALCIUM 8.7 MG/DL (8.5-10.1); CHLORIDE 98 MMOL/L (99-107); CREATININE 7.83 MG/DL (0.40-0.90); GLUCOSE 100 MG/DL (70-104); MAGNESIUM 2.4 MG/DL (1.5-2.4); PHOSPHORUS 5.2 MG/DL (2.3-4.5); POTASSIUM 4.1 MMOL/L (3.5-5.1); SODIUM 136 MMOL/L (135-145); TOTAL PROTEIN 6.7 G/DL (6.4-8.2); eGFR 5 ML/MIN
[2019-02-03] MEDS ORDERED: heparin 1,000unit/ml 10ml vial 10 ML IV ONE (07:51)
[2019-02-03] MEDS ORDERED: heparin 1,000 units/ml 10ml inj HE ONE ×2 (07:55→08:35)
[2019-02-03 08:00] VITALS: BP 151/68
[2019-02-03] MEDS: cloNIDine 0.1 mg tablet PO SCH ×3 (08:00→20:40)
[2019-02-03] MEDS: metoprolol succinate 25mg (24-HOUR) SR. Tablet PO SCH (08:00)
[2019-02-03] MEDS: HYDROchlorothiazide 12.5mg capsule PO SCH (08:00)
[2019-02-03] MEDS: heparin, porcine 5000 units/ml vial SQ SCH ×2 (08:00→20:40)
[2019-02-03] MEDS: losartan 50mg tablet PO SCH (08:00)
[2019-02-03 08:07] LABS: PLATELET ESTIMATE NORMAL; TOTAL CELLS COUNTED 100
[2019-02-03] MEDS: vitamin D (cholecalciferol) 1,000 unit tablet PO SCH (08:33)
[2019-02-03] MEDS: lactobacillus rhamnosus 10,000 MMU CELLS/CAPSULE PO SCH ×2 (08:34→20:39)
[2019-02-03] MEDS: aspirin 81mg tablet.DR PO SCH (08:34)
[2019-02-03] MEDS: levoFLOXACIN 250mg tablet PO SCH (08:35)
[2019-02-03] MEDS: cetirizine 10mg tablet PO SCH (08:35)
[2019-02-03] MEDS: thyroid, pork 30mg tablet PO SCH (08:36)
[2019-02-03] MEDS: nystatin 15 GM powder TP SCH ×3 (08:39→20:41)
--- NOTE | 2019-02-03 10:29 | NUR ---
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 Pt currently on renal diet with average 50% PO intake. Recommend Nepro TID to provide additional protein for skin integrity as well as to meet the protein demands for dialysis, notified. Will continue to follow. Addendum: 02/03/19 at [address] Amended: Links added.
[2019-02-03 11:00] VITALS: BP 121/55
[2019-02-03] MEDS ORDERED: epoetin 20,000 units/ml inj IV ONE (12:30)
[2019-02-03] MEDS: NUT.TX.IMP.RENAL FXN,LAC-REDUC (Nepro) 237 ML VANILLA PO SCH (13:00)
--- NOTE | 2019-02-03 18:30 | NUR ---
Problems reprioritized. Patient report given, questions answered & plan of care reviewed with Marla ERIC.
--- NOTE | 2019-02-03 19:06 | NUR ---
Patient in room AGUSTIN 352. I have received report from Jose ERIC and had the opportunity to ask questions and assume patient care.
[2019-02-03 20:20] VITALS: BP 149/65
[2019-02-04 00:20] VITALS: BP 144/69
[2019-02-04 05:17] LABS: HBSAG SCREEN Negative (Negative); HEP B CORE AB, TOT Negative (Negative)
--- NOTE | 2019-02-04 06:04 | NUR ---
Problems reprioritized. Patient report given, questions answered & plan of care reviewed with Veronika ERIC.
[2019-02-04 08:00] VITALS: BP 149/69
[2019-02-04] MEDS: cetirizine 10mg tablet PO SCH (08:05)
[2019-02-04] MEDS: lactobacillus rhamnosus 10,000 MMU CELLS/CAPSULE PO SCH ×2 (08:05→20:10)
[2019-02-04] MEDS: vitamin D (cholecalciferol) 1,000 unit tablet PO SCH (08:05)
[2019-02-04] MEDS: losartan 50mg tablet PO SCH (08:05)
[2019-02-04] MEDS: aspirin 81mg tablet.DR PO SCH (08:05)
[2019-02-04] MEDS: levoFLOXACIN 250mg tablet PO SCH (08:05)
[2019-02-04] MEDS: thyroid, pork 30mg tablet PO SCH (08:05)
[2019-02-04] MEDS: metoprolol succinate 25mg (24-HOUR) SR. Tablet PO SCH (08:06)
[2019-02-04] MEDS: heparin, porcine 5000 units/ml vial SQ SCH ×2 (08:06→20:11)
[2019-02-04] MEDS: cloNIDine 0.1 mg tablet PO SCH ×3 (08:06→20:10)
[2019-02-04] MEDS: HYDROchlorothiazide 12.5mg capsule PO SCH (08:06)
[2019-02-04] MEDS: nystatin 15 GM powder TP SCH ×3 (08:07→20:11)
[2019-02-04 11:00] VITALS: BP 122/61
[2019-02-04] MEDS: NUT.TX.IMP.RENAL FXN,LAC-REDUC (Nepro) 237 ML VANILLA PO SCH ×2 (14:08→14:09)
[2019-02-04 18:00] VITALS: BP 134/66
--- NOTE | 2019-02-04 21:59 | NUR ---
Patient in room AGUSTIN 358. I have received report from HERNESTO Banda and had the opportunity to ask questions and assume patient care. Addendum: 02/04/19 at 2210 by Carlotta Pierre RN Amended: Links added.
[2019-02-05 00:06] VITALS: BP 162/57
--- NOTE | 2019-02-05 06:27 | NUR ---
Problems reprioritized. Patient report given, questions answered & plan of care reviewed with HERNESTO Razo. Addendum: 02/05/19 at 0687 by Carlotta Pierre RN Amended: Links added.
--- NOTE | 2019-02-05 06:36 | NUR ---
Patient in room AGUSTIN 358. I have received report from Carlotta ERIC and had the opportunity to ask questions and assume patient care.
[2019-02-05 07:00] VITALS: BP 154/67
[2019-02-05] MEDS: cloNIDine 0.1 mg tablet PO SCH (07:44)
[2019-02-05] MEDS: losartan 50mg tablet PO SCH (07:44)
[2019-02-05] MEDS: HYDROchlorothiazide 12.5mg capsule PO SCH (07:44)
[2019-02-05] MEDS: metoprolol succinate 25mg (24-HOUR) SR. Tablet PO SCH (07:44)
[2019-02-05] MEDS: heparin, porcine 5000 units/ml vial SQ SCH (08:00)
[2019-02-05] MEDS: aspirin 81mg tablet.DR PO SCH (08:21)
[2019-02-05] MEDS: vitamin D (cholecalciferol) 1,000 unit tablet PO SCH (08:22)
[2019-02-05] MEDS: cetirizine 10mg tablet PO SCH (08:22)
[2019-02-05] MEDS: thyroid, pork 30mg tablet PO SCH (08:22)
[2019-02-05] MEDS: lactobacillus rhamnosus 10,000 MMU CELLS/CAPSULE PO SCH (08:22)
[2019-02-05] MEDS: levoFLOXACIN 250mg tablet PO SCH (08:22)
[2019-02-05] MEDS ORDERED: normal saline 1000ml 250 ML IV PRN (08:28)
[2019-02-05] MEDS ORDERED: heparin 1,000unit/ml 10ml vial 10 ML IV ONE (08:28)
[2019-02-05] MEDS ORDERED: epoetin 20,000 units/ml inj IV ONE (08:30)
[2019-02-05] MEDS ORDERED: heparin 1,000 units/ml 10ml inj HE ONE ×2 (08:35)
[2019-02-05] MEDS: nystatin 15 GM powder TP SCH (09:30)
--- NOTE | 2019-02-05 09:30 | NUR ---
Family of pt (Dtr & ) expressed several concerns regarding pt's care. She stated 'the MD' told the family dressings to the abd were to be changed TID but are not being done so, that the pt isn't eating because she doesn't like beans, pineapple, or the meat served at the hospital, that the pt doesn't want PTx to work with her here because she want's to have PTx at [facility] instead. The WOC orders/plan was reviewed, and revealed orders for QD drsg changes but TID Nystatin to abd. Also the preconstruction manager, Tejas, was notified of pt's food preferences and he agreed to discuss options for pt being on a renal diet. Ptx jeffreyal'd pt 02/04 and will see pt again today if pt will allow, and Gypsy ATKINSON, is coordinating transfer to [facility] for today after HD is completed, likely after 1400. Dr. Ruiz signed discharge packet and TMS for transfer today. Pt and family notified of all of the above, and will be communicated with as day progresses.
--- NOTE | 2019-02-05 09:47 | NUR ---
Dialysis nurse currently at bedside
[2019-02-05] MEDS: ondansetron/PF 4mg/2ml inj IV PRN (10:11)
[2019-02-05 11:00] VITALS: BP 95/54
[2019-02-05] MEDS: acetaminophen 325mg tablet PO PRN (11:54)
--- NOTE | 2019-02-05 12:49 | NUR ---
Received TC from RN requesting RD to speak with pt regarding food preferences. Per RN notes patient's SO reports pt not eating d/t not liking food being provided to her. Pt and SO seen at bedside however pt receiving HD and declined RD assessment at this time. Written ESRD on HD education with RD contact information provided. Pt and SO denied food preferences at this time stating pt will be discharging from hospital shortly. Encouraged family to reach out to RD if they have any questions/comments/concerns regarding meal trays or education provided. Pt with documented average 50-75% PO intake of meals on renal diet and receiving Nepro TID. Will continue to follow. Addendum: 02/05/19 at [address] Amended: Links added.
--- NOTE | 2019-02-05 15:05 | NUR ---
Discharge patient to [facility], report given to Dave EDMONDS. Peripheral IV catheter removed,tip intact. Wound care done, wound photo taken with patient permission. Belongings sent with the patient. Patient transported to [facility] by [employer]
== END 2019-02-05 15:08 | DRG 673 ==
LOC: ER 16:06 → SUR 3N 21:30 → CMPBEDREQ 02-02 15:15 → SUR 3N 02-04 19:26
PROVIDERS: ADMIT Internal Medicine Critical Care Medicine; ATTEND Internal Medicine Critical Care Medicine
PROC: 0JH63XZ Insertion of Tunneled Vascular Access Device into Chest Subcutaneous Tissue and Fascia, Percutaneous Approach (ICD-10-PCS; 2019-01-30)
PROC: 02H633Z Insertion of Infusion Device into Right Atrium, Percutaneous Approach (ICD-10-PCS; 2019-01-30)
PROC: B244ZZZ Ultrasonography of Right Heart (ICD-10-PCS; 2019-01-30)
PROC: 5A1D70Z Performance of Urinary Filtration, Intermittent, Less than 6 Hours Per Day (ICD-10-PCS; 2019-01-30)
PROC: 30233N1 Transfusion of Nonautologous Red Blood Cells into Peripheral Vein, Percutaneous Approach (ICD-10-PCS; 2019-01-30)
PROC: B2141ZZ Fluoroscopy of Right Heart using Low Osmolar Contrast (ICD-10-PCS; 2019-01-30)
PROC: 5A1D70Z Performance of Urinary Filtration, Intermittent, Less than 6 Hours Per Day (ICD-10-PCS; 2019-01-31)
PROC: 5A1D70Z Performance of Urinary Filtration, Intermittent, Less than 6 Hours Per Day (ICD-10-PCS; 2019-02-03)
PROC: 5A1D70Z Performance of Urinary Filtration, Intermittent, Less than 6 Hours Per Day (ICD-10-PCS; principal; 2019-02-05)
DX: I12.0 Hypertensive chronic kidney disease with stage 5 chronic kidney disease or end stage renal disease (principal); N18.6 End stage renal disease; N17.9 Acute kidney failure, unspecified; N39.0 Urinary tract infection, site not specified; E03.9 Hypothyroidism, unspecified; E83.39 Other disorders of phosphorus metabolism; L89.159 Pressure ulcer of sacral region, unspecified stage; I95.9 Hypotension, unspecified; Z79.82 Long term (current) use of aspirin; Z88.0 Allergy status to penicillin; Z79.899 Other long term (current) drug therapy; Z79.890 Hormone replacement therapy
CPT/HCPCS: 36415; 36558; 71045; 76937; 77001; 80053; 83540; 83550; 83735; 84100; 85025; 85610; 85730; 86704; 86706; 86885; 86900; 86901; 86920; 87081; 87340; 97110; 97161; 97530; 99152; 99153; 99285; A9270; C1750; C1894; G0257; G0378; J0780; J1644; J2150; J2250; J2405; J3010; J3370; P9016; Q4081

== ENCOUNTER 2019-02-27 09:22 | Outpatient (CLI) | payer MEDICARE, OTHER ==
[~2019-02-27 09:22] MED LIST changes: +CLON0.2T PO; +HEPA500017 SUBCUT; +HYDR-4069 PO; +LEVO500T2 PO
== END 2019-02-27 23:59 | disposition home or self-care (01) ==
LOC: VAS 09:22
PROVIDERS: ATTEND Surgery
DX: R60.0 Localized edema (principal)
CPT/HCPCS: 93971

== ENCOUNTER 2019-04-09 07:47 | Day surgery (SDC) | payer MEDICARE, OTHER ==
[~2019-04-09] VITALS: Ht 162.6 cm; Wt 87.4 kg
[2019-04-09 08:29] VITALS: BP 153/63
[2019-04-09] MEDS ORDERED: normal saline 1000ml 1,000 ML IV PRN (08:40)
[2019-04-09] MEDS ORDERED: fentaNYL/PF 50MCG/1 ML 2ML syringe IV PRN (09:15)
[2019-04-09] MEDS ORDERED: heparin 1,000 UNITS/NS 500ml 500 ML ICATH ONE (09:15)
[2019-04-09] MEDS ORDERED: midazolam 2 mg/2 ml injection IV PRN (09:15)
[2019-04-09] MEDS ORDERED: LIDOcaine 1% (10mg/ml) 2ml vial SQ ONE (09:15)
[2019-04-09] MEDS ORDERED: midazolam 2 mg/2 ml injection ONE ×2 (09:46→10:19)
[2019-04-09] MEDS ORDERED: LIDOcaine 1%/PF 5ML 10 MG/ML VIAL ONE ×2 (09:46→09:58)
[2019-04-09] MEDS ORDERED: heparin 1,000 UNITS/NS 500ml 500 ML ONE (09:47)
[2019-04-09] MEDS ORDERED: fentaNYL/PF 50MCG/1 ML 2ML syringe ONE ×2 (09:47→10:19)
[2019-04-09] MEDS ORDERED: iohexol 300mg/ml 100ml inj. ONE (09:47)
[2019-04-09 10:57] VITALS: BP 147/67
[2019-04-09 11:11] VITALS: BP 133/65
[2019-04-09 11:27] VITALS: BP 142/70
[2019-04-09 11:40] VITALS: BP 138/68
== END 2019-04-09 12:07 | disposition home or self-care (01) ==
LOC: SSTAY O 07:47
PROVIDERS: ATTEND Radiology Vascular & Interventional Radiology
DX: T82.858A Stenosis of other vascular prosthetic devices, implants and grafts, initial encounter (principal); E03.9 Hypothyroidism, unspecified; I12.9 Hypertensive chronic kidney disease with stage 1 through stage 4 chronic kidney disease, or unspecified chronic kidney disease; N18.9 Chronic kidney disease, unspecified; F17.210 Nicotine dependence, cigarettes, uncomplicated; E11.22 Type 2 diabetes mellitus with diabetic chronic kidney disease; Z79.82 Long term (current) use of aspirin; Z79.899 Other long term (current) drug therapy; Z99.2 Dependence on renal dialysis; Z88.0 Allergy status to penicillin; Y83.8 Other surgical procedures as the cause of abnormal reaction of the patient, or of later complication, without mention of misadventure at the time of the procedure; Y92.89 Other specified places as the place of occurrence of the external cause
CPT/HCPCS: 36901; 76937; 99152; 99153; J1644; J2250; J3010; J7030; Q9967

== ENCOUNTER 2019-06-18 09:40 | Day surgery (SDC) | payer MEDICARE, OTHER ==
[~2019-06-18] VITALS: Ht 162.6 cm; Wt 84.0 kg
[~2019-06-18 09:40] MED LIST changes: -ASPI-611 PO; -CETI10CA PO; -CHOL10002 PO; -HEPA500017 SUBCUT; -HYDR-4069 PO; -LEVO500T2 PO; +LOSA100T57 PO; +PHO667C PO; +THY60T PO; -THYR90TA PO; -VALS160T2 PO
[2019-06-18 10:05] VITALS: BP 120/55
[2019-06-18] MEDS ORDERED: famotidine 10mg tablet PO ONE (10:30)
[2019-06-18] MEDS ORDERED: DOCUMENT DATE & TIME OF BETA-BLOCKER PO ONE (10:30)
[2019-06-18] MEDS ORDERED: cefazolin/dext.iso 2gm/100ml 100 ML IV ONE (10:30)
[2019-06-18] MEDS ORDERED: normal saline 1000ml 500 ML IV SCH (10:30)
[2019-06-18 10:55] LABS: BASOPHILS # (AUTO) 0.1 X10'3 (0-0.2); BASOPHILS % (AUTO) 0.7 % (0-1); EOSINOPHILS # (AUTO) 1.2 X10'3 (0-0.9); EOSINOPHILS % (AUTO) 10.5 % (0-6); LYMPHOCYTES # (AUTO) 3.2 X10'3 (1.1-4.8); LYMPHOCYTES % (AUTO) 28.7 % (21-51); MEAN CORPUSCULAR HEMOGLOBIN 30.3 PG (27.0-31.0); MEAN CORPUSCULAR VOLUME 94.6 FL (78-98); MEAN PLATELET VOLUME 8.9 FL (7.4-10.4); MONOCYTES % (AUTO) 8.9 % (2-12); NEUTROPHILS # (AUTO) 5.6 X10'3 (1.8-7.7); NEUTROPHILS % (AUTO) 51.2 % (42-75); PRE OP HEMATOCRIT 36.7 % (35.0-45.0); PRE OP HEMOGLOBIN 11.8 g/dL (12.0-16.0); PRE OP PLATELET COUNT 300 X10'3 (140-440); RED BLOOD COUNT 3.88 X10'6 (4.20-5.60); RED CELL DISTRIBUTION WIDTH 15.7 % (11.5-14.5)
[2019-06-18 11:10] LABS: ALBUMIN 3.6 G/DL (3.4-5.0); ALBUMIN/GLOBULIN RATIO 0.9 (1.1-1.5); ALKALINE PHOSPHATASE 80 IU/L (46-116); BLOOD UREA NITROGEN 35 MG/DL (7-18); BUN/CREATININE RATIO 8.1 (6.6-38.0); CALCIUM 9.6 MG/DL (8.5-10.1); CHLORIDE 101 MMOL/L (99-107); PRE OP ALT 23 U/L (30-65); PRE OP ANION GAP 6 (8-16); PRE OP AST 13 U/L (10-37); PRE OP BILIRUB, TOTAL 0.7 MG/DL (0.0-1.0); PRE OP GLUCOSE 100 MG/DL (70-104); PRE OP POTASSIUM 4.4 MMOL/L (3.4-5.1); PRE OP SODIUM 140 MMOL/L (135-145); TOTAL CARBON DIOXIDE 32.7 MMOL/L (24-32); TOTAL PROTEIN 7.6 G/DL (6.4-8.2); eGFR 10 ML/MIN
[2019-06-18] MEDS ORDERED: ASPI81TA52 PO (11:33)
[2019-06-18] MEDS ORDERED: heparin 10,000 units/1 ML INJ ONE (12:21)
[2019-06-18] MEDS ORDERED: BUPIVAcaine/PF 2.5mg/ml (0.25%) 10ml vial ONE (12:31)
[2019-06-18] MEDS ORDERED: sevoflurane 250ml liquid IH ONE (13:03)
[2019-06-18] MEDS ORDERED: fentaNYL/PF 50MCG/1 ML 2ML syringe ONE (13:07)
[2019-06-18] MEDS ORDERED: midazolam 2 mg/2 ml injection ONE (13:07)
[2019-06-18] MEDS ORDERED: propofol inj 20 ML IV ONE (13:07)
[2019-06-18] MEDS ORDERED: ondansetron/PF 4mg/2ml inj IV PRN (13:50)
[2019-06-18] MEDS ORDERED: meperidine/PF 25mg/ml syringe IV PRN ×3 (13:50)
[2019-06-18] MEDS ORDERED: ringers solution, lacted 1,000 ML IV SCH (13:50)
[2019-06-18] MEDS ORDERED: morphine 4 MG/ML inj SYRINge IV PRN ×2 (13:50)
[2019-06-18] MEDS ORDERED: proCHLORperazine 10 MG/2 ml inj IV PRN (13:50)
[2019-06-18 14:06] VITALS: BP 180/79
--- NOTE | 2019-06-18 14:06 | NUR ---
Received from OR via , accompanied by Anesthesiologist DR MORFIN and report given by Anesthesiolgist. AWAKENS TO VOICE. VITALS STABLE. DRESSING DI. FABIANA PAIN.
[2019-06-18 14:16] VITALS: BP 171/78
[2019-06-18 14:26] VITALS: BP 170/76
[2019-06-18 14:36] VITALS: BP 169/74
[2019-06-18 14:46] VITALS: BP 167/73
--- NOTE | 2019-06-18 14:56 | NUR ---
AWAKE AND ORIENTED. VITALS STABLE. DRESSING DI. FABIANA PAIN. HOME WITH HER SPOUSE AT THIS TIME.
== END 2019-06-18 14:56 | disposition home or self-care (01) ==
LOC: PAS 09:40
PROVIDERS: ATTEND Surgery
DX: T82.858A Stenosis of other vascular prosthetic devices, implants and grafts, initial encounter (principal); E03.9 Hypothyroidism, unspecified; I12.9 Hypertensive chronic kidney disease with stage 1 through stage 4 chronic kidney disease, or unspecified chronic kidney disease; N18.3 Chronic kidney disease, stage 3 (moderate); F17.290 Nicotine dependence, other tobacco product, uncomplicated; E66.9 Obesity, unspecified; Z68.31 Body mass index [BMI] 31.0-31.9, adult; Z79.899 Other long term (current) drug therapy; Z79.82 Long term (current) use of aspirin; Z98.890 Other specified postprocedural states; Z90.49 Acquired absence of other specified parts of digestive tract; Z99.2 Dependence on renal dialysis; Y83.2 Surgical operation with anastomosis, bypass or graft as the cause of abnormal reaction of the patient, or of later complication, without mention of misadventure at the time of the procedure; Y92.89 Other specified places as the place of occurrence of the external cause
CPT/HCPCS: 36415; 36832; 80053; 85025; 93005; J1644; J2250; J2704; J3010; J3490; J7030; J7040; J7120; A4215; A4618; A7000

== ENCOUNTER 2019-12-01 11:16 | Day surgery (SDC) | payer MEDICARE, OTHER ==
[~2019-12-01] VITALS: Ht 162.6 cm; Wt 84.8 kg
[~2019-12-01 11:16] MED LIST changes: +ASPI81TA52 PO
[2019-12-01] MEDS ORDERED: normal saline 1000ml 1,000 ML IV SCH (11:45)
[2019-12-01] MEDS ORDERED: CHOL50004 PO (11:57)
[2019-12-01 12:00] VITALS: BP 132/77
[2019-12-01 12:38] LABS: BASOPHILS # (AUTO) 0.1 X10'3 (0-0.2); BASOPHILS % (AUTO) 1.1 % (0-1); EOSINOPHILS # (AUTO) 1.1 X10'3 (0-0.9); EOSINOPHILS % (AUTO) 9.9 % (0-6); HEMATOCRIT 36.9 % (35.0-45.0); HEMOGLOBIN 11.9 g/dl (12.0-16.0); LYMPHOCYTES # (AUTO) 3.4 X10'3 (1.1-4.8); LYMPHOCYTES % (AUTO) 30.4 % (21-51); MEAN CORPUSCULAR HEMOGLOBIN 31.8 PG (27.0-31.0); MEAN CORPUSCULAR HGB CONC 32.4 g/dL (33.0-36.5); MEAN CORPUSCULAR VOLUME 98.2 FL (78-98); MEAN PLATELET VOLUME 8.9 FL (7.4-10.4); MONOCYTES % (AUTO) 9.3 % (2-12); NEUTROPHILS # (AUTO) 5.6 X10'3 (1.8-7.7); NEUTROPHILS % (AUTO) 49.3 % (42-75); PLATELET COUNT 296 X10'3 (140-440); RED BLOOD COUNT 3.75 X10'6 (4.20-5.60); RED CELL DISTRIBUTION WIDTH 15.2 % (11.5-14.5); WHITE BLOOD COUNT 11.3 X10'3 (4.5-11.0)
[2019-12-01 12:46] LABS: ALBUMIN 3.3 G/DL (3.4-5.0); ANION GAP 8 (8-16); BLOOD UREA NITROGEN 31 MG/DL (7-18); CALCIUM 10.1 MG/DL (8.5-10.1); CHLORIDE 103 MMOL/L (99-107); CREATININE 4.46 MG/DL (0.40-0.90); GLUCOSE 105 MG/DL (70-104); POTASSIUM 4.1 MMOL/L (3.5-5.1); SODIUM 140 MMOL/L (135-145); TOTAL CARBON DIOXIDE 28.9 MMOL/L (24-32); eGFR 10 ML/MIN
[2019-12-01] MEDS ORDERED: iohexol 300mg/ml 100ml inj. ONE ×2 (13:10→14:16)
[2019-12-01] MEDS ORDERED: midazolam 2 mg/2 ml injection ONE ×3 (13:10→13:58)
[2019-12-01] MEDS ORDERED: heparin 1,000 UNITS/NS 500ml 500 ML ONE (13:10)
[2019-12-01] MEDS ORDERED: LIDOcaine 1%/PF 5ML 10 MG/ML VIAL ONE (13:10)
[2019-12-01] MEDS ORDERED: fentaNYL/PF 50MCG/1 ML 2ML syringe ONE ×2 (13:10→13:58)
[2019-12-01 14:40] VITALS: BP 148/96
[2019-12-01 14:55] VITALS: BP 109/54
[2019-12-01 15:10] VITALS: BP 159/86
[2019-12-01 15:25] VITALS: BP 167/77
[2019-12-01 15:40] VITALS: BP 126/71
== END 2019-12-01 15:45 | disposition home or self-care (01) ==
LOC: SSTAY O 11:16
PROVIDERS: ATTEND Radiology Diagnostic Radiology
DX: T82.858A Stenosis of other vascular prosthetic devices, implants and grafts, initial encounter (principal); I12.9 Hypertensive chronic kidney disease with stage 1 through stage 4 chronic kidney disease, or unspecified chronic kidney disease; N18.9 Chronic kidney disease, unspecified; Z88.0 Allergy status to penicillin; Z79.899 Other long term (current) drug therapy; Y83.2 Surgical operation with anastomosis, bypass or graft as the cause of abnormal reaction of the patient, or of later complication, without mention of misadventure at the time of the procedure; Y92.89 Other specified places as the place of occurrence of the external cause; Z11.59 Encounter for screening for other viral diseases
CPT/HCPCS: 36415; 36902; 80048; 85025; 85610; 99152; 99153; C1725; C1769; C1894; J1644; J2250; J3010; J7030; Q9967; U0003

== ENCOUNTER 2020-03-03 09:54 | Day surgery (SDC) | payer MEDICARE, OTHER ==
[2020-02-26 16:44] LABS: BASOPHILS # (AUTO) 0.1 X10'3 (0-0.2); BASOPHILS % (AUTO) 1.3 % (0-1); EOSINOPHILS # (AUTO) 0.6 X10'3 (0-0.9); EOSINOPHILS % (AUTO) 5.6 % (0-6); LYMPHOCYTES # (AUTO) 3.4 X10'3 (1.1-4.8); LYMPHOCYTES % (AUTO) 33.5 % (21-51); MEAN CORPUSCULAR HGB CONC 33.1 g/dL (33.0-36.5); MEAN CORPUSCULAR VOLUME 96.7 FL (78-98); MEAN PLATELET VOLUME 8.8 FL (7.4-10.4); MONOCYTES # (AUTO) 0.7 X10'3 (0-0.9); MONOCYTES % (AUTO) 6.8 % (2-12); NEUTROPHILS # (AUTO) 5.3 X10'3 (1.8-7.7); NEUTROPHILS % (AUTO) 52.8 % (42-75); PRE OP HEMATOCRIT 35.5 % (35.0-45.0); PRE OP HEMOGLOBIN 11.7 g/dL (12.0-16.0); PRE OP PLATELET COUNT 274 X10'3 (140-440); RED BLOOD COUNT 3.67 X10'6 (4.20-5.60); RED CELL DISTRIBUTION WIDTH 14.2 % (11.5-14.5)
[2020-02-26 17:02] LABS: ALBUMIN 3.3 G/DL (3.4-5.0); ALBUMIN/GLOBULIN RATIO 0.8 (1.1-1.5); ALKALINE PHOSPHATASE 76 IU/L (46-116); BLOOD UREA NITROGEN 17 MG/DL (7-18); BUN/CREATININE RATIO 5.8 (6.6-38.0); CALCIUM 9.2 MG/DL (8.5-10.1); CHLORIDE 100 MMOL/L (99-107); CREATININE 2.95 MG/DL (0.40-0.90); PRE OP ALT 16 U/L (30-65); PRE OP ANION GAP 7 (8-16); PRE OP AST 13 U/L (10-37); PRE OP BILIRUB, TOTAL 0.6 MG/DL (0.0-1.0); PRE OP GLUCOSE 140 MG/DL (70-104); PRE OP SODIUM 139 MMOL/L (135-145); TOTAL CARBON DIOXIDE 31.7 MMOL/L (24-32); TOTAL PROTEIN 7.4 G/DL (6.4-8.2); eGFR 15 ML/MIN
[2020-02-26 17:05] LABS: PRE OP POTASSIUM 3.2 MMOL/L (3.4-5.1)
[~2020-03-03] VITALS: Ht 162.6 cm; Wt 84.1 kg
[2020-03-03] VITALS (10 sets, daily range): BP systolic 128–157; BP diastolic 57–76
[~2020-03-03 09:54] MED LIST changes: -ASPI81TA52 PO; +CHOL50004 PO; +DOCUMENT DATE & TIME OF BETA-BLOCKER PO ONE; +cefazolin/dext.iso 2gm/50ml 50 ML IV ONE; +famotidine 20mg tablet PO ONE; +normal saline 1000ml 1,000 ML IV SCH
[2020-03-03] MEDS ORDERED: BUPIVAcaine/PF 2.5mg/ml (0.25%) 10ml vial ONE (11:40)
[2020-03-03] MEDS ORDERED: heparin 10,000 units/1 ML INJ ONE (11:40)
[2020-03-03] MEDS ORDERED: ringers solution, lacted 1,000 ML IV SCH (12:24)
[2020-03-03] MEDS ORDERED: proCHLORperazine 10 MG/2 ml inj IV PRN (12:25)
[2020-03-03] MEDS ORDERED: morphine 2 MG/ML inj. syringe IV PRN (12:25)
[2020-03-03] MEDS ORDERED: meperidine/PF 25mg/ml syringe IV PRN ×3 (12:25)
[2020-03-03] MEDS ORDERED: morphine 4 MG/ML inj SYRINge IV PRN (12:25)
[2020-03-03] MEDS ORDERED: ondansetron/PF 4mg/2ml inj IV PRN (12:25)
[2020-03-03] MEDS ORDERED: sevoflurane 250ml liquid IH ONE (12:42)
[2020-03-03] MEDS ORDERED: midazolam 2 mg/2 ml injection ONE (12:43)
[2020-03-03] MEDS ORDERED: propofol inj 20 ML IV ONE (12:43)
[2020-03-03] MEDS ORDERED: fentaNYL/PF 50MCG/1 ML 2ML syringe ONE (12:43)
--- NOTE | 2020-03-03 13:59 | NUR ---
Received from OR via [facility] , accompanied by Anesthesiologist NAVJOT and report given by Anesthesiolgist. 20GPIV IN LEFT UE RUNNING NS AT 10CC, VSS. RIGHT FOREARM DRESSING IS CDI, DUAL LUMEN DIALYSIS CATH PRESENT TO RIGHT CHEST WALL. CDI- PATIENT PRESENT ON ADMISSION. 10L MASK ON WITH 100% SATURATIONS. WILL MEDICATE FOR PAIN TO RIGHT FOREARM. DRESSING IS CDI AT THIS TIME. Addendum: 03/03/20 at 1425 by Dinesh Sampson RN, RN Amended: Links added.
--- NOTE | 2020-03-03 15:13 | NUR ---
PATIENT AND FAMILY AND THEY HAVE VERBALIZED UNDERSTANDING, OPPORTUNITY TO ASK QUESTIONS GIVEN AND PATIENT COMFORTABLE WITH DC. IV TAKEN OUT WITHOUT COMPLICATION. PATIENT HAS MET ALL DC CRITERIA FOR DC HOME. I HAVE REVIEWED D/C INSTRUCTIONS WITH OUT VIA WHEELCHAIR WHERE PATIENT WAS TAKEN HOME WITH ALL BELONGINGS. FAMILY GAVE PATIENT TRANSPORT HOME. CLAUDE ERIC PRESENT TO ASSIST IN DRESSING PATIENT AND TRANSFERING PATIENT OUT TO SPOUSES VEHICLE. Addendum: 03/03/20 at 1519 by iDnesh Sampson RN, RN Amended: Links added.
== END 2020-03-03 15:13 | disposition home or self-care (01) ==
LOC: PAS 09:54
PROVIDERS: ATTEND Surgery
DX: T82.858A Stenosis of other vascular prosthetic devices, implants and grafts, initial encounter (principal); I12.9 Hypertensive chronic kidney disease with stage 1 through stage 4 chronic kidney disease, or unspecified chronic kidney disease; N18.9 Chronic kidney disease, unspecified; E03.9 Hypothyroidism, unspecified; E66.9 Obesity, unspecified; Z68.31 Body mass index [BMI] 31.0-31.9, adult; Z88.0 Allergy status to penicillin; Z79.899 Other long term (current) drug therapy; Z20.828 Contact with and (suspected) exposure to other viral communicable diseases; Z98.890 Other specified postprocedural states; Z87.891 Personal history of nicotine dependence; Z99.2 Dependence on renal dialysis
CPT/HCPCS: 36415; 36832; 80053; 82948; 84132; 85025; 87635; 93005; J1644; J2175; J2250; J2704; J3010; J3490; J7030; J7040; J7120; A4215; A4618; A7000

== ENCOUNTER 2020-05-31 08:39 | Day surgery (SDC) | payer MEDICARE, OTHER ==
[~2020-05-31] VITALS: Ht 162.6 cm; Wt 84.5 kg
[~2020-05-31 08:39] MED LIST changes: -DOCUMENT DATE & TIME OF BETA-BLOCKER PO ONE; -cefazolin/dext.iso 2gm/50ml 50 ML IV ONE; -famotidine 20mg tablet PO ONE; -normal saline 1000ml 1,000 ML IV SCH
[2020-05-31 09:00] VITALS: BP 118/46
[2020-05-31] MEDS ORDERED: normal saline 1000ml 1,000 ML IV PRN (09:10)
[2020-05-31] MEDS ORDERED: CETI10CA PO (09:11)
[2020-05-31 09:42] LABS: BASOPHILS # (AUTO) 0.1 X10'3 (0-0.2); BASOPHILS % (AUTO) 1.2 % (0-1); EOSINOPHILS # (AUTO) 0.7 X10'3 (0-0.9); EOSINOPHILS % (AUTO) 7.7 % (0-6); HEMATOCRIT 37.1 % (35.0-45.0); HEMOGLOBIN 12.1 g/dl (12.0-16.0); LYMPHOCYTES % (AUTO) 31.5 % (21-51); MEAN CORPUSCULAR HEMOGLOBIN 32.2 PG (27.0-31.0); MEAN CORPUSCULAR HGB CONC 32.5 g/dL (33.0-36.5); MEAN PLATELET VOLUME 8.8 FL (7.4-10.4); MONOCYTES # (AUTO) 0.9 X10'3 (0-0.9); NEUTROPHILS # (AUTO) 4.8 X10'3 (1.8-7.7); NEUTROPHILS % (AUTO) 50.6 % (42-75); PLATELET COUNT 261 X10'3 (140-440); RED BLOOD COUNT 3.74 X10'6 (4.20-5.60); RED CELL DISTRIBUTION WIDTH 15.1 % (11.5-14.5); WHITE BLOOD COUNT 9.5 X10'3 (4.5-11.0)
[2020-05-31 09:56] LABS: ALBUMIN 3.6 G/DL (3.4-5.0); ANION GAP 8 (8-16); BLOOD UREA NITROGEN 30 MG/DL (7-18); BUN/CREATININE RATIO 6.3 (6.6-38.0); CALCIUM 9.3 MG/DL (8.5-10.1); CHLORIDE 101 MMOL/L (99-107); CREATININE 4.73 MG/DL (0.40-0.90); GLUCOSE 103 MG/DL (70-104); POTASSIUM 4.2 MMOL/L (3.5-5.1); SODIUM 138 MMOL/L (135-145); TOTAL CARBON DIOXIDE 29.2 MMOL/L (24-32); eGFR 9 ML/MIN
[2020-05-31 12:30] VITALS: BP 138/64
== END 2020-05-31 12:30 | disposition home or self-care (01) ==
LOC: SSTAY O 08:39
PROVIDERS: ATTEND Radiology Diagnostic Radiology
DX: T82.590A Other mechanical complication of surgically created arteriovenous fistula, initial encounter (principal); Z53.8 Procedure and treatment not carried out for other reasons; Z20.828 Contact with and (suspected) exposure to other viral communicable diseases; Y83.2 Surgical operation with anastomosis, bypass or graft as the cause of abnormal reaction of the patient, or of later complication, without mention of misadventure at the time of the procedure; Y92.89 Other specified places as the place of occurrence of the external cause
CPT/HCPCS: 36415; 80048; 85025; 87635

== ENCOUNTER → 2022-03-30 | Day surgery (SDC) | payer MEDICARE, OTHER ==
[2022-03-29 13:53] LABS: BASOPHILS # (AUTO) 0.2 X10'3 (0-0.2); BASOPHILS % (AUTO) 1.5 % (0-1); EOSINOPHILS # (AUTO) 0.9 X10'3 (0-0.9); EOSINOPHILS % (AUTO) 7.6 % (0-6); LYMPHOCYTES # (AUTO) 2.7 X10'3 (1.1-4.8); LYMPHOCYTES % (AUTO) 23.3 % (21-51); MEAN CORPUSCULAR HEMOGLOBIN 34.1 PG (27.0-31.0); MEAN CORPUSCULAR VOLUME 100.2 FL (78-98); MEAN PLATELET VOLUME 8.6 FL (7.4-10.4); MONOCYTES # (AUTO) 1.1 X10'3 (0-0.9); MONOCYTES % (AUTO) 9.4 % (2-12); NEUTROPHILS # (AUTO) 6.7 X10'3 (1.8-7.7); NEUTROPHILS % (AUTO) 58.2 % (42-75); PRE OP HEMATOCRIT 33.6 % (35.0-45.0); PRE OP HEMOGLOBIN 11.4 g/dL (12.0-16.0); PRE OP PLATELET COUNT 334 X10'3 (140-440); RED BLOOD COUNT 3.35 X10'6 (4.20-5.60); RED CELL DISTRIBUTION WIDTH 13.8 % (11.5-14.5)
[2022-03-29 14:09] LABS: ALBUMIN 3.3 G/DL (3.4-5.0); ALBUMIN/GLOBULIN RATIO 0.8 (1.1-1.5); ALKALINE PHOSPHATASE 77 IU/L (46-116); BLOOD UREA NITROGEN 18 MG/DL (7-18); BUN/CREATININE RATIO 5.6 (6.6-38.0); CHLORIDE 102 MMOL/L (99-107); CREATININE 3.23 MG/DL (0.40-0.90); PRE OP ALT 11 U/L (30-65); PRE OP ANION GAP 5 (8-16); PRE OP AST 16 U/L (10-37); PRE OP BILIRUB, TOTAL 0.7 MG/DL (0.0-1.0); PRE OP GLUCOSE 97 MG/DL (70-104); PRE OP POTASSIUM 3.8 MMOL/L (3.4-5.1); PRE OP SODIUM 141 MMOL/L (135-145); TOTAL CARBON DIOXIDE 33.7 MMOL/L (24-32); TOTAL PROTEIN 7.3 G/DL (6.4-8.2); eGFR 14 ML/MIN
[~2022-03-30] VITALS: Ht 162.6 cm; Wt 92.9 kg
[2022-03-30] VITALS (9 sets, daily range): BP systolic 143–165; BP diastolic 66–87
[~2022-03-30] MED LIST changes: +BUPIVAcaine/PF 2.5 mg/ml (0.25%) 30ml vial ONE; +CETI10CA PO; -CHOL50004 PO; -CLON0.2T PO; +DOCUMENT DATE & TIME OF BETA-BLOCKER PO ONE; +HYDR-4069 PO; -HYDR12.55 PO; +HYDR25TA5 PO; +LIDOcaine 2% (20mg/ml) 5ml vial ONE; -PHO667C PO; +acetaminophen 325mg tablet PO ONE; +ceFAZolin inj. 2,000 MG in dextrose 5%-water 100 ML IV ONE; +celeCOXIB 100mg capsule PO ONE; +ePHEDrine 50MG/ML INJ. ONE; +famotidine 20mg tablet PO ONE; +fentaNYL/PF 50MCG/1 ML 2ML syringe ONE; +gabapentin 300mg capsule PO ONE; +glycopyrrolate 0.2mg/ml inj ONE; +metoclopramide 5 mg/ml inj IV ONE; +neostigmine methylsulfate 1 MG/ML 10ml vial ONE; +normal saline 500ml IV soln 500 ML IV SCH; +ondansetron/PF 4mg/2ml inj IV ONE; +ondansetron/PF 4mg/2ml inj ONE; +oxyCODONE SR 10mg (sust. release) tab -2 tabs (20mg) PO ONE; +propofol inj 20 ML IV ONE; +ringers solution, lacted 1,000 ML IV SCH; +rocuronium 10mg/ml inj IV ONE; +sevoflurane 250ml liquid IH ONE; +tranexamic acid inj. 1,000 MG in normal saline IV soln 100ML IV ONE; +vancomycin 1,500 MG in NS 300ml IV soln IV ONE
--- NOTE | 2022-03-30 10:00 | NUR ---
PATIENT HAS AN ALLERGY TO PCN. NOTIFIED SURGEON, HE STATES GIVE ANCEF, NO CHANGES TO ABX.
[2022-03-30 12:53] LABS: ISTAT CREATININE 3.8 mg/dL (0.6-1.1); ISTAT HGB 12.6 g/dl (12.0-16.0); ISTAT IONIZED CALCIUM 1.17 mmol/L (1.03-1.32); ISTAT K 3.8 mmol/L (3.5-5.1); POC BUN/CREATININE RATIO 5.8 (6.6-38.0)
--- NOTE | 2022-03-30 14:09 | NUR ---
Received from OR via , accompanied by Anesthesiologist DR HERNANDEZ and report given by Anesthesiolgist. VSS. 20G IN LEFT AC. MASK ON 8 LITERS. STATES NO PAIN. LEFT HAND DRESSING WITH BOO BANDAGE COVERING. CDI WITH NO DRAINAGE. NS AT 20ML/HR (RENAL PATIENT). FISTULA NOTED ON RIGHT FOREARM. Addendum: 03/30/22 at 1425 by Ilene Cruz RN Amended: Links added.
--- NOTE | 2022-03-30 15:29 | NUR ---
ALL DISCHARGE CRITERIA HAS BEEN MET. VSS, PAIN AT A TOLERABLE LEVEL, VOIDING AND ABLE TO SAFELY AMBULATE AND TRANSFER SELF. IV TAKEN OUT WITHOUT ANY COMPLICATIONS. ALL DISCHARGE INSTRUCTIONS COVERED WITH PATIENT AND ALL QUESTIONS ANSWERED. PATIENT TAKEN OUT VIA WHEELCHAIR TO PERSONAL VEHICLE WHERE FAMILY/FRIEND DROVE PATIENT HOME. Addendum: 03/30/22 at 1543 by Ilene Cruz RN Amended: Links added.
== END | disposition home or self-care (01) ==
LOC: PAS 08:55
PROVIDERS: ATTEND Orthopaedic Surgery
DX: S62.327A Displaced fracture of shaft of fifth metacarpal bone, left hand, initial encounter for closed fracture (principal); X58.XXXA Exposure to other specified factors, initial encounter; Y93.89 Activity, other specified; Y92.89 Other specified places as the place of occurrence of the external cause; Y99.8 Other external cause status; Z79.899 Other long term (current) drug therapy; Z88.0 Allergy status to penicillin; Z98.890 Other specified postprocedural states; Z87.891 Personal history of nicotine dependence; Z20.822 Contact with and (suspected) exposure to COVID-19
CPT/HCPCS: 26615; 36415; 80047; 80053; 82948; 85025; 87811; A6222; C1713; J0690; J2405; J2704; J2765; J3010; J3370; J3490; J7030; J7040; J7060; J7120; Z7506; Z7512; A4215; A4615; A4618; A6446; A6449; A7000; J2710

== ENCOUNTER 2022-06-04 03:08 | Emergency (ER) | payer MEDICARE, OTHER ==
[~2022-06-04] VITALS: Ht 162.6 cm; Wt 90.9 kg
[~2022-06-04 03:08] MED LIST changes: -BUPIVAcaine/PF 2.5 mg/ml (0.25%) 30ml vial ONE; -DOCUMENT DATE & TIME OF BETA-BLOCKER PO ONE; -LIDOcaine 2% (20mg/ml) 5ml vial ONE; -acetaminophen 325mg tablet PO ONE; -ceFAZolin inj. 2,000 MG in dextrose 5%-water 100 ML IV ONE; -celeCOXIB 100mg capsule PO ONE; -ePHEDrine 50MG/ML INJ. ONE; -famotidine 20mg tablet PO ONE; -fentaNYL/PF 50MCG/1 ML 2ML syringe ONE; -gabapentin 300mg capsule PO ONE; -glycopyrrolate 0.2mg/ml inj ONE; -metoclopramide 5 mg/ml inj IV ONE; -neostigmine methylsulfate 1 MG/ML 10ml vial ONE; -normal saline 500ml IV soln 500 ML IV SCH; -ondansetron/PF 4mg/2ml inj IV ONE; -ondansetron/PF 4mg/2ml inj ONE; -oxyCODONE SR 10mg (sust. release) tab -2 tabs (20mg) PO ONE; -propofol inj 20 ML IV ONE; -ringers solution, lacted 1,000 ML IV SCH; -rocuronium 10mg/ml inj IV ONE; -sevoflurane 250ml liquid IH ONE; -tranexamic acid inj. 1,000 MG in normal saline IV soln 100ML IV ONE; -vancomycin 1,500 MG in NS 300ml IV soln IV ONE
[2022-06-04 03:13] VITALS: BP 199/87
[2022-06-04] MEDS ORDERED: HYDROcodone/acetaminophen 5mg/325mg tablet PO ONE ×2 (04:20→06:55)
--- NOTE | 2022-06-04 04:31 | NUR ---
partial dose po med given x1 tab. 1 tab returned to jenniffer
--- NOTE | 2022-06-04 06:51 | NUR ---
notified md mchugh that pt is requesting for pain meds.pt recieved [place] 5/325 mg 2 hr ago .as per he will put the orders .will follow the orders.notified charge stacey orders to move the pt to T2 for tx.
[2022-06-04] MEDS ORDERED: HYDR-3964 PO (07:35)
== END 2022-06-04 07:55 | disposition home or self-care (01) ==
LOC: ER 03:08
DX: S52.502A Unspecified fracture of the lower end of left radius, initial encounter for closed fracture (principal); S62.511A Displaced fracture of proximal phalanx of right thumb, initial encounter for closed fracture; S09.8XXA Other specified injuries of head, initial encounter; N18.9 Chronic kidney disease, unspecified; Z98.890 Other specified postprocedural states; Z79.899 Other long term (current) drug therapy; W19.XXXA Unspecified fall, initial encounter; Y93.89 Activity, other specified; Y92.89 Other specified places as the place of occurrence of the external cause; Y99.8 Other external cause status
CPT/HCPCS: 29125; 70450; 73090; 73110; 73130; 99284; A4565; A6449

== ENCOUNTER 2023-04-25 08:40 | Day surgery (SDC) | payer MEDICARE, OTHER ==
[~2023-04-25] VITALS: Ht 162.6 cm; Wt 95.7 kg
[~2023-04-25 08:40] MED LIST changes: -LOSA100T57 PO; +LOSA100T58 PO
[2023-04-25] MEDS ORDERED: fentaNYL/PF 50MCG/1 ML 2ML syringe ONE (09:05)
[2023-04-25] MEDS ORDERED: iohexol 300mg/ml 100ml inj. ONE (09:05)
[2023-04-25] MEDS ORDERED: heparin 1,000 UNITS/NS 500ml 500 ML ONE (09:05)
[2023-04-25] MEDS ORDERED: midazolam 1 mg/ML 2ml injection ONE (09:05)
[2023-04-25 09:08] VITALS: BP 172/56; PULSE 60; RESP 16; TEMP 98.1; O2SAT 96
[2023-04-25] MEDS ORDERED: normal saline 1000ml 1,000 ML IV PRN (09:10)
[2023-04-25 09:30] VITALS: RESP 16; O2SAT 96
[2023-04-25 09:31] LABS: BASOPHILS # (AUTO) 0.1 X10'3 (0-0.2); EOSINOPHILS # (AUTO) 0.6 X10'3 (0-0.9); EOSINOPHILS % (AUTO) 5.8 % (0-6); HEMATOCRIT 36.1 % (35.0-45.0); LYMPHOCYTES # (AUTO) 2.3 X10'3 (1.1-4.8); LYMPHOCYTES % (AUTO) 23.8 % (21-51); MEAN CORPUSCULAR HEMOGLOBIN 33.8 PG (27.0-31.0); MEAN CORPUSCULAR HGB CONC 33.2 g/dL (33.0-36.5); MEAN CORPUSCULAR VOLUME 101.8 FL (78-98); MEAN PLATELET VOLUME 9.1 FL (7.4-10.4); MONOCYTES % (AUTO) 10.4 % (2-12); NEUTROPHILS # (AUTO) 5.7 X10'3 (1.8-7.7); PLATELET COUNT 336 X10'3 (140-440); RED BLOOD COUNT 3.54 X10'6 (4.20-5.60); RED CELL DISTRIBUTION WIDTH 13.6 % (11.5-14.5); WHITE BLOOD COUNT 9.7 X10'3 (4.5-11.0)
[2023-04-25 09:40] LABS: INR 0.9 INR; PROTHROMBIN TIME 10.2 SECONDS (9.0-12.0)
[2023-04-25 10:10] LABS: ALBUMIN 3.5 G/DL (3.4-5.0); ANION GAP 8 (8-16); BLOOD UREA NITROGEN 20 MG/DL (7-18); BUN/CREATININE RATIO 6.2 (10.0-20.0); CALCIUM 8.9 MG/DL (8.5-10.1); CHLORIDE 102 MMOL/L (99-107); CREATININE 3.23 MG/DL (0.40-0.90); GLUCOSE 95 MG/DL (70-104); POTASSIUM 3.6 MMOL/L (3.5-5.1); SODIUM 142 MMOL/L (135-145); TOTAL CARBON DIOXIDE 32.1 MMOL/L (24-32); eCRCL 12 ML/MIN; eGFR 14 ML/MIN
== END 2023-04-25 11:55 | disposition home or self-care (01) ==
LOC: SSTAY O 08:40
PROVIDERS: ATTEND Radiology Diagnostic Radiology
DX: T82.868A Thrombosis due to vascular prosthetic devices, implants and grafts, initial encounter (principal); Z53.8 Procedure and treatment not carried out for other reasons; I12.0 Hypertensive chronic kidney disease with stage 5 chronic kidney disease or end stage renal disease; N18.6 End stage renal disease; Z79.899 Other long term (current) drug therapy; Z98.890 Other specified postprocedural states; Z88.0 Allergy status to penicillin; Y71.2 Prosthetic and other implants, materials and accessory cardiovascular devices associated with adverse incidents; Y92.89 Other specified places as the place of occurrence of the external cause
CPT/HCPCS: 36415; 80048; 85025; 85610; J1644; J2250; J3010; J7030; Q9967; A4620

== ENCOUNTER 2024-09-10 09:18 | Day surgery (SDC) | payer MEDICARE, OTHER ==
[2024-09-10] VITALS (8 sets, daily range): BP systolic 123–142; BP diastolic 53–58; PULSE 50–57; RESP 11–21; O2SAT 92–95
[~2024-09-10] VITALS: Ht 162.6 cm; Wt 79.0 kg
[~2024-09-10 09:18] MED LIST changes: -HYDR-4069 PO; -HYDR25TA5 PO; +HYDR25TA90 PO; +propofol inj 20 ML IV ONE
[2024-09-10] MEDS ORDERED: simethicone 40mg/0.6ml oral drops 30ml ONE (10:19)
[2024-09-10] MEDS ORDERED: propofol inj 20 ML IV ONE (10:40)
== END 2024-09-10 11:20 | disposition home or self-care (01) ==
LOC: GI LAB 09:18
PROVIDERS: ATTEND Internal Medicine Gastroenterology
DX: R13.19 Other dysphagia (principal); K21.00 Gastro-esophageal reflux disease with esophagitis, without bleeding; K31.89 Other diseases of stomach and duodenum; K44.9 Diaphragmatic hernia without obstruction or gangrene; R63.4 Abnormal weight loss; I12.0 Hypertensive chronic kidney disease with stage 5 chronic kidney disease or end stage renal disease; N18.6 End stage renal disease
CPT/HCPCS: 43239; 88305; 88312; A4620; J2704; J7030; Z7512